=== PATIENT | male | born 1960 | race Caucasian/White ===

== ENCOUNTER 2023-11-10 07:30 | Outpatient (RCR) | payer BC, SELFPAY | END 2024-02-09 11:34 | disposition home or self-care (01) | PROVIDERS: PCP Family Medicine; Visit Provider Family Medicine | DX: M17.0 Bilateral primary osteoarthritis of knee (principal); M25.561 Pain in right knee; M25.562 Pain in left knee; G89.29 Other chronic pain; Z74.09 Other reduced mobility; R29.898 Other symptoms and signs involving the musculoskeletal system; M62.81 Muscle weakness (generalized); Z51.89 Encounter for other specified aftercare | CPT/HCPCS: 97110; 97140; 97162 ==

== ENCOUNTER 2023-12-04 12:43 | Inpatient (IN) | payer BC, MEDICARE, SELFPAY ==
[2023-12-04] VITALS (21 sets, daily range): BP systolic 127–168; BP diastolic 79–99; PULSE 62–92; RESP 16–18; TEMP 36.4–36.9; O2SAT 93–100; BMI 31.4; BMI 32.2
--- NOTE | 2023-12-04 14:13 | CRLHL7_ITS ---
For Patients: As a result of the 21st Century Cures Act, medical imaging exams and procedure reports are released immediately into your electronic medical record. You may view this report before your referring provider. If you have questions, please contact your health care provider. INDICATION: Lower abdominal pain since yesterday COMPARISON: None. TECHNIQUE: CT of the abdomen and pelvis after the administration of intravenous contrast. Multiplanar axial, coronal, and sagittal reformats were reconstructed. Contrast: 100 mL Isovue 370 intravenously. Oral contrast was not administered. FINDINGS: Lung bases: At least moderate coronary artery calcifications. Mild right basilar atelectasis Liver: Normal. No masses. Normal vasculature. Gallbladder and biliary tree: Normal gallbladder. No biliary duct dilation. Pancreas: Normal. Spleen: Calcified granulomas. Normal size. Adrenal glands: Normal. No nodules. Kidneys and bladder: Normal size and position. No cyst or mass. No calculi. No urinary tract dilation. The urinary bladder is normal. GI: The stomach and duodenum have a normal course and caliber and are decompressed. The proximal small bowel has a normal course and caliber and is decompressed. There is slow progression into dilated small bowel. The most dilated small-bowel in the mid to distal ileum in the left mid abdomen and is dilated up to 3.2 cm. Within the dilated bowel there are scattered air-fluid levels. There is fecalization of contents and distally. Within the dilated segment there is no significant abnormal bowel wall thickening or unusual bowel enhancement. There is an abrupt transition in the central lower abdomen on series 2, image 110. Within a dilated segments there is some general mesenteric edema and mesenteric hyperemia. No perforation. No abscess. No fistula seen. Beyond the transition point there is circumferential bowel wall thickening involving about 20 cm of the distal ileum. There is a trilaminar appearance of the bowel wall that is thickened up to 7 mm. Inflammation extends through the terminal ileum to the ileocecal valve. The appendix is not discretely seen. Liquid stool in the right colon. Small distal stool burden. Minimal sigmoid diverticuli. Vessels: Aorta and major branches, including the mesenteric vessels: Patent. Normal caliber. Few atherosclerotic plaques. IVC and tributaries: Normal. Mesenteric and portal veins: Normal. Peritoneum: Small ascites seen in the pelvis, around the liver, and minimally in the left upper quadrant around the spleen. Lymph nodes: No adenopathy. Pelvis: Physiologic appearance of the reproductive organs. Bones: No fractures. No focal bone lesions. Multilevel disc degeneration. Abdominal wall: Normal. IMPRESSION: Small-bowel obstruction. No ischemia or closed loop morphology. The distal transition point is the beginning of a 20 cm segment of the distal and terminal ileum that is fairly significantly inflamed. Findings are suspicious for inflammatory bowel disease but there are not any findings that are specific to inflammatory bowel disease. There is a moderate amount of mesenteric edema and a small amount of free fluid. No perforation, abscess, or definite fistula seen. Please note that all CT scans at this facility use dose modulation, iterative reconstruction, and/or weight-based dosing when appropriate to reduce radiation dose to as low as reasonably achievable. Dictated by Violeta Barr MD @ 12/04/2023 4:35:50 PM (Electronically Signed)
--- OUTSIDE RECORDS SUMMARY | 2023-12-04 14:31 | XMS_ITS | Clinical Summary ---
Author Name Unknown Organization [facility] Address [place], [place] [address] Care Team Providers Care Retail Clerk Name Role Phone VotelOmi MD Primary Care Provider + Allergies No known active allergies Medications Medication Sig Dispensed Refills Start Date End Date Status cholecalciferol (VITAMIN D) 1,000 unit capsule Take 1 capsule by mouth once daily. 0 12/03/2020 Active levothyroxine (SYNTHROID) 100 mcg tabletIndications: Hypothyroidism (acquired) TAKE 1 TABLET(100 MCG) BY MOUTH BEFORE BREAKFAST 90 Tablet 3 03/22/2023 Active diclofenac topical (VOLTAREN) 1 % gelIndications:Sol n in both knees, unspecified chronicity Apply 4 g topically to affected area(s) four times daily. 60 g 2 03/23/2023 Active multivitamin capsule Take 1 Capsule by mouth once daily. 0 Active calcium carbonate (CALCIUM 500 ORAL) Take 1,000 mg by mouth. 0 Active magnesium oxide 400 mg magnesium capsule Take 400 mg by mouth once daily. 0 Active Zinc Acetate, Oral, 25 mg (zinc) cap Take by mouth. 0 Active B-complex with vitamin C (SUPER B COMPLEX-VITAMIN C ORAL) Take by mouth once every other day if needed. 0 Active omega 8-evs-fzh-fish-tur meric 417 mg-120 mg- 276 mg-600 mg cap Take by mouth. 0 Active Graduated Compression StockingsIndicatio ns:Varicose veins of right lower extremity, unspecified whether complicated For personal use. Length: thigh Strength: 16-20 mmHg Circumference in cm: For thigh: Ankle 11 inches, Calf 16.50 inches, Thigh 18.75 inches, Thigh to Ankle length 23.75 inches. 1 Packet 0 07/21/2023 Active Active Problems Problem Noted Date Diagnosed Date Bilateral primary osteoarthritis of knee 023 Varicose veins of right lower extremity 07/21/20 Hypothyroidism, acquired 05/23/2020 Overview: May 2020: TSH over 6. Thyroperoxidase antibodies are also high at 149. Starting Levothyroxine 50mcg. Vitamin D deficiency 2013 Mixed hyperlipidemia 2013 Tobacco abuse 2013 Overweight(278.02) 2013 Colon polyp 09/06/2010 Overview: Colonoscopy 08/2010 polyp repeat in 5 years Colonoscopy 07/2020 polyps, repeat in 5 years Encounters Date Type Department Care Team Description 12/04/2023 Nurse Triage [facility] [address] [place] [address] Omi Lopez MD Abdominal Pain/problem 09/22/2023 10:20 AM CDT Office Visit [facility] [address] [place] [address] Mukund Phillips MD Musculoskeletal Problem (Right knee pain. Rates pain 02/27 today. ) 09/22/2023 Travel from Last 3 Months Immunizations Name Administration Dates Next Due COVID-19 vaccine (Stromedix-Bio NTech 30mcg/0.3mL) MD AMBROCIOV 10/28/2021,04/02/2021,03/12/2021 Influenza, IIV3 (Age >=3 years) 08/24/2010 Influenza, IIV4 12/21/2021,09/18/2020,10/02/2019 Tdap 03/21/2018,12/05/2011 Zoster (Shingrix-RZV, recombinant) 12/03/2020, Family History Medical History Relation Name Comments Cancer Father leukemia Stroke Mother age 86 Heart Disease Neg. 1 Cancer-colon Neg. 2 Cancer-prostate Neg. 3 Diabetes Neg. 4 Relation Name Status Comments Father Mother Neg. 1 Neg. 2 Neg. 3 Neg. 4 Social History Tobacco Use Types Packs/Day Years Used Date Smoking Tobacco: Former Cigarettes 1 35 0 12/21/1984 - 12/21/2019 Smokeless Tobacco: Never Tobacco Cessation:Counseling Given: Yes Alcohol Use Standard Drinks/Week Comments Yes 0 (1 standard drink = 0.6 oz pur e alcohol) 2-3 cans of beer per day PHQ-2 Answer Date Recorded PHQ-2 TOTAL SCORE 1 12/21/2021 Social Connections Answer Date Recorded Frequency of Communication with Friends and Fami ly 0 03/23/2023 Financial Resource Strain Answer Date R ecorded Difficulty of Paying Living Expenses 3 03/23/2023 Difficulty of Paying Living Expenses Not on file 03/23/2023 Food Insecurity Answer Date Recorded Worried About Running Out of Food in the Last Ye ar 1 03/23/2023 Transportation Needs Answer Date Record ed Lack of Transportation (Medical) 1 03/23/2023 Housing Stability Answer Date Recorded Unable to Pay for Housing in the Last Year 1 03/23/2023 Sex and Gender Information Value Date Recorded Sex Assigned at Male 12/20/2021 8:21 PM [employer] Gender Identity Male 12/20/2021 8:21 PM [employer] Sexual Orientation Straight 12/20/2021 8: 21 PM [employer] Obstetrics History Last Filed Vital Signs Vital Sign Reading Time Taken Comments Blood Pressure 114/76 09/22/2023 10:16 AM CDT Pulse 65 09/22/2023 10:16 AM CDT Temperature 36.7 ??C (98.1 ??F) 09/22/2023 10:16 AM C DT Respiratory Rate - - Oxygen Saturation 97% 09/22/2023 10:16 AM CDT Inhaled Oxygen Concentration - - Weight 107.5 kg (237 lb) 09/22/2023 10:16 AM CDT Height 180.3 cm (5' 11) 03/23/2023 4:51 PM CDT Body Mass Index 33.05 03/23/2023 4:51 PM CDT Plan of Treatment Upcoming Encounters Date Type Department Care Team (Late st Contact Info) Description 12/22/2023 9:40 AM [employer] Office Visit [facility] [address] [place] [address] Mukund Phillips MD [address] [place] [address] Health Maintenance Due Date Last Done Comments HIV for age 15-65 1973 Hepatitis C screening for ag e 18-[address] (for lung CA) ag e 50-80 2008 Depression screening for age 12+ 12/21/2022 12/21/2021, 12/03/2020, 07/01/2020, Additional history exists AAA screening age 65-74 2023 Pneumococcal series for age 65+ (1 of 1 - PCV) 2023 COVID-19 vaccine series ( - 2022- season) 2023 10/28/2021, 04/02/2021, 03/12/2021 Influenza for age 65+ 07/21/2023 12/21/2021 , 09/18/2020, 10/02/2019, Additional history exists BMI (ht and wt on same day) for age 18+ 03/23/2024 03/23/2023, 12/21/2021, 12/03/2020, Additional history exists Colonoscopy through age 75 07/24/202507/24, 07/24/2020, 09/06/2010, Additional history exists Tetanus booster 03/21/2028 03/21/2018, 11/20, 12/05/2011 ([facility]) Lipids for age 45-75 03/23/2028 03/23/2023, 12/21/2021, 12/03/2020, Additional history exists Tdap Completed 03/21/2018, 12/05/2011 Zoster (shingles) series for age 50+ Completed 12/03/2020, 07/01/2020 Care Teams Retail Clerk Relationship Specialty Start Date End Date Votel, Omi Acosta MD [address] [place] [address] PCP - General Family Practice 07/01/20
[2023-12-04 14:37] LABS: Appearance Urine Clear (Clear); Bilirubin Urine Negative (Negative); Blood Urine Negative (Negative); Color Urine Yellow (Yellow); Glucose Urine Negative (Negative); Ketones Urine 1+ (Negative); Leukocyte Esterase Urine Negative (Negative); Nitrite Urine Negative (Negative); Protein Urine Trace (Negative); Specific Gravity Urine >= 1.030 (1.000-1.030); Urobilinogen Urine 0.2 (0.2-1.0)
[2023-12-04 14:49] LABS: Basophils Percent Auto 0.1 % (0.0-3.0); Eosinophils Percent Auto 0.1 % (0.0-7.0); Hematocrit 46.7 % (37.0-53.0); Hemoglobin* 16.1 gm/dL (13.5-17.5); Immature Granulocytes Pct Auto 0.1 %; Lymphocytes Percent Auto 5.2 % (20-44); Mean Corpuscular HGB Conc 35 gm/dL (32-36); Mean Corpuscular Hemoglobin 33 pg (26-34); Mean Corpuscular Volume 95 fL (80-100); Monocytes Percent Auto 3.3 % (0.0-11.0); Neutrophils Percent Auto 91.2 % (42.0-72.0); Platelet Count* 268 K/uL (140-440); RDW Coefficient of Variation % 12.3 % (11.5-15.5); Red Blood Count 4.93 m/uL (4.30-5.90); White Blood Count* 13.74 K/uL (4.50-11.00)
[2023-12-04 15:03] LABS: Creatinine, Point-of-Care* 0.8 mg/dl (0.6-1.3)
[2023-12-04 15:13] LABS: Amorphous Sediment Urine Few; Bacteria Urine Few; Calcium Oxalate Crystals Urine Moderate; RBC Urine 0-2 (0-2); Squamous Epithelial Cell Urine Few (None-Few); WBC Urine 0-2 (0-5)
[2023-12-04 15:13] LABS: Slide Review Reflex No
[2023-12-04 15:14] LABS: Albumin* 4.8 g/dL (3.3-5.0); Chloride* 104 mmol/L (96-114); Potassium* 3.9 mmol/L (3.6-5.1); Sodium* 140 mmol/L (135-149)
[2023-12-04 15:16] LABS: Anion Gap 10 mEq/L (7-15); Bilirubin Total* 0.7 mg/dL (0.1-1.5); Carbon Dioxide* 26 mmol/L (20-32); Creatinine* 0.7 mg/dL (0.5-1.5); Est. Creatinine Clearance* 78.44; Estimated Glomerular Filt Rate 102 ml/min
[2023-12-04 15:17] LABS: Alanine Aminotransferase* 23 U/L (4-50); Alkaline Phosphatase* 83 U/L (40-150); Aspartate Amino Transferase* 27 U/L (12-35); Blood Urea Nitrogen* 16 mg/dL (7-30); Calcium* 9.5 mg/dL (8.4-10.6); Glucose* 127 mg/dL (60-115); Lipase* 73 U/L (23-300); Total Protein* 7.8 g/dL (6.0-8.3)
[2023-12-04 15:30] LABS: PCR FLU A Negative PCR FLU A (Negative); PCR FLU B Negative PCR FLU B (Negative); SARS PCR* Negative SARS-CoV-2 (Negative)
--- NOTE | 2023-12-04 15:52 | ED_ITS ---
HPI - Abdominal Pain General Date Seen: 12/04/23 <Lance P Charles - Last Filed: 12/04/23 16:05> Chief Complaint: Abdominal Pain <Lance Soto - Last Filed: 12/04/23 16:05> Stated Complaint: Stomach pains <Lance Soto - Last Filed: 12/04/23 16:05> Time Seen by Provider: 12/04/23 13:48 <Lance Soto - Last Filed: 12/04/23 16:05> Source: patient <Lance Soto - Last Filed: 12/04/23 16:05> Mode of arrival: ambulatory <Lance Soto - Last Filed: 12/04/23 16:05> Limitations: no limitations <Lance Soto - Last Filed: 12/04/23 16:05> History of Present Illness HPI narrative: Patient is a 63-year-old male presenting to the emergency department for lower abdominal pain. he states the pain started yesterday and seems to come and go. He states his only in his lower abdomen but goes all the way across his lower abdomen. Has not noticed any abdominal distension. Denies diarrhea, constipation, dysuria, fevers, chills, chest pain, shortness of breath, lightheadedness, dizziness, nausea /vomiting. Says the pain is tolerable at this time. he has no previous abdominal surgeries. Denies ever having symptoms like this before. Says it feels like a dull sensation. Has not taking any pain medication. He does states he drinks 1 or 2 drinks of alcohol every night for several years after work. States his last drink was this past . No other concerns noted at this time <Lance Soto - Last Filed: 12/04/23 16:05> Related Data Home Medications: Home Medications Medication Instructions Recorded Confirmed levothyroxine 100 mcg tablet 100 mcg PO DAILY 12/04/23 12/04/23 <Lance Soto - Last Filed: 12/04/23 16:05> Allergies/Adverse Reactions: Allergies Allergy/AdvReac Type Severity Reaction Status Date / Time No Known Drug Allergies Allergy Verified 12/04/23 16:02 <Lance Soto - Last Filed: 12/04/23 16:05> Review of Systems Status of ROS Reports: 10 or more systems reviewed and unremarkable except as noted in History and below <Lance Soto DO - Last Filed: 12/04/23 16:05> [facility] Social History: Social History Smoking Status: Never smoker Do you use any of these nicotine containing products: None Second hand tobacco smoke exposure: No How often do you have a drink containing alcohol: 4 or more times a week How many standard drinks containing alcohol do you have on a typical day: 1 or 2 AUDIT-C Alcohol total score: 4 Non-prescribed substance use: denies use <Lance Soto DO - Last Filed: 12/04/23 16:05> Exam Narrative: Exam Narrative: Const: Well-nourished, Well-developed, in mild distress Eyes: PERRL, no conjunctival injection, and symmetrical lids HENT: Atraumatic external nose and ears. Moist mucous membranes. Neck: Symmetric, trachea midline, No thyromegaly. CVS: RRR, No murmurs or gallops. Peripheral pulses 2+ and equal in all extremities RESP: Unlabored respiratory effort. Clear to auscultation bilaterally. GI: lower abdominal tenderness, Nondistended, No rebound or guarding. MSK:Extremities w/o deformity, Normal Active ROM Skin: Warm, Dry. No rashes or lesions. Neuro: Normal Muscle tone, No focal neurological deficits. Psych: Awake, Alert, & Oriented x3. Appropriate mood and affect. <Lance Soto DO - Last Filed: 12/04/23 16:05> Const: Vital Signs, click to edit/add: Vital Signs - 24 hr 12/04/23 13:20 12/04/23 13:45 12/04/23 14:00 Temperature 98.5 F Pulse Rate 74 65 Pulse Rate [Pulse Oximeter] 92 Respiratory Rate 18 Blood Pressure Blood Pressure [Ri ght Upper Arm] 144/89 H Pulse Oximetry 95 96 93 Oxygen Delivery Me thod Room Air 12/04/23 14:29 12/04/23 14:31 12/04/23 14:32 Temperature Pulse Rate 75 70 70 Pulse Rate [Pulse Oximeter] Respiratory Rate Blood Pressure 146/91 H 147/86 H Blood Pressure [Ri ght Upper Arm] Pulse Oximetry 100 100 97 Oxygen Delivery Me thod 12/04/23 15:01 12/04/23 15:31 12/04/23 16:02 Temperature Pulse Rate 69 Pulse Rate [Pulse Oximeter] Respiratory Rate Blood Pressure 150/87 H 155/99 H Blood Pressure [Ri ght Upper Arm] Pulse Oximetry 96 Oxygen Delivery Me thod 12/04/23 16:04 12/04/23 16:05 12/04/23 16:31 Temperature Pulse Rate 75 70 71 Pulse Rate [Pulse Oximeter] Respiratory Rate Blood Pressure 157/84 H 159/98 H Blood Pressure [Ri ght Upper Arm] Pulse Oximetry 95 95 97 Oxygen Delivery Me thod 12/04/23 16:32 12/04/23 17:00 12/04/23 17:01 Temperature Pulse Rate 73 68 70 Pulse Rate [Pulse Oximeter] Respiratory Rate Blood Pressure 168/96 H Blood Pressure [Ri ght Upper Arm] Pulse Oximetry 96 97 98 Oxygen Delivery Me thod <Lance Soto, DO - Last Filed: 12/04/23 16:05> Vital Signs, click to edit/add: Vital Signs - 24 hr 12/04/23 13:20 12/04/23 13:45 12/04/23 14:00 Temperature 98.5 F Pulse Rate 74 65 Pulse Rate [Pulse Oximeter] 92 Respiratory Rate 18 Blood Pressure Blood Pressure [Ri ght Upper Arm] 144/89 H Pulse Oximetry 95 96 93 Oxygen Delivery Me thod Room Air 12/04/23 14:29 12/04/23 14:31 12/04/23 14:32 Temperature Pulse Rate 75 70 70 Pulse Rate [Pulse Oximeter] Respiratory Rate Blood Pressure 146/91 H 147/86 H Blood Pressure [Ri ght Upper Arm] Pulse Oximetry 100 100 97 Oxygen Delivery Me thod 12/04/23 15:01 12/04/23 15:31 12/04/23 16:02 Temperature Pulse Rate 69 Pulse Rate [Pulse Oximeter] Respiratory Rate Blood Pressure 150/87 H 155/99 H Blood Pressure [Ri ght Upper Arm] Pulse Oximetry 96 Oxygen Delivery Me thod 12/04/23 16:04 12/04/23 16:05 12/04/23 16:31 Temperature Pulse Rate 75 70 71 Pulse Rate [Pulse Oximeter] Respiratory Rate Blood Pressure 157/84 H 159/98 H Blood Pressure [Ri ght Upper Arm] Pulse Oximetry 95 95 97 Oxygen Delivery Me thod 12/04/23 16:32 12/04/23 17:00 12/04/23 17:01 Temperature Pulse Rate 73 68 70 Pulse Rate [Pulse Oximeter] Respiratory Rate Blood Pressure 168/96 H Blood Pressure [Ri ght Upper Arm] Pulse Oximetry 96 97 98 Oxygen Delivery Me thod <Lydia Montoya MD - Last Filed: 12/04/23 17:24> Course Course ED Course: I was asked to follow-up in the patient's CT scan: this shows a small bowel obstruction with areas of inflammatory changes. I did consult with Dr. Cid as well as the hospitalist, patient will be admitted for further management. <Lydia Montoya MD - Last Filed: 12/04/23 17:24> Vital Signs Vital signs: Initial Vital Signs Temperature 98.5 F 12/04/23 13:20 Temperature Source Temporal Artery Scan 12/04/23 13:20 Pulse Rate 92 12/04/23 13:20 Respiratory Rate 18 12/04/23 13:20 Blood Pressure 144/89 H 12/04/23 13:20 Blood Pressure Mean 107 H 12/04/23 13:20 Blood Pressure Position Sitting 12/04/23 13:20 Pulse Oximetry 95 12/04/23 13:20 Oxygen Delivery Method Room Air 12/04/23 13:20 Vital Signs Temperature 98.5 F 12/04/23 13:20 Pulse Rate 92 12/04/23 13:20 Respiratory Rate 18 12/04/23 13:20 Blood Pressure 144/89 H 12/04/23 13:20 Pulse Oximetry 95 12/04/23 13:20 Oxygen Delivery Method Room Air 12/04/23 13:20 Temperature 98.5 F 12/04/23 13:20 Pulse Rate 70 12/04/23 17:01 Respiratory Rate 18 12/04/23 13:20 Blood Pressure 168/96 H 12/04/23 17:01 Pulse Oximetry 98 12/04/23 17:01 Oxygen Delivery Method Room Air 12/04/23 13:20 <Lance Soto DO - Last Filed: 12/04/23 16:05> Initial Vital Signs Temperature 98.5 F 12/04/23 13:20 Temperature Source Temporal Artery Scan 12/04/23 13:20 Pulse Rate 92 12/04/23 13:20 Respiratory Rate 18 12/04/23 13:20 Blood Pressure 144/89 H 12/04/23 13:20 Blood Pressure Mean 107 H 12/04/23 13:20 Blood Pressure Position Sitting 12/04/23 13:20 Pulse Oximetry 95 12/04/23 13:20 Oxygen Delivery Method Room Air 12/04/23 13:20 Vital Signs Temperature 98.5 F 12/04/23 13:20 Pulse Rate 92 12/04/23 13:20 Respiratory Rate 18 12/04/23 13:20 Blood Pressure 144/89 H 12/04/23 13:20 Pulse Oximetry 95 12/04/23 13:20 Oxygen Delivery Method Room Air 12/04/23 13:20 Temperature 98.5 F 12/04/23 13:20 Pulse Rate 70 12/04/23 17:01 Respiratory Rate 18 12/04/23 13:20 Blood Pressure 168/96 H 12/04/23 17:01 Pulse Oximetry 98 12/04/23 17:01 Oxygen Delivery Method Room Air 12/04/23 13:20 <Lydia Montoya MD - Last Filed: 12/04/23 17:24> MDM - Abdominal Pain MDM Narrative Medical decision making narrative: patient is a 63-year-old male presenting for lower abdominal pain. There is some concern for liver disease due to his history of alcoholism and will do a CMP to better evaluate this. Does have lower abdominal pain so appendicitis and diverticulitis are on the differential. Seems unlikely to be a small-bowel obstruction with no history of abdominal surgeries but it is in my differential at this time. Is not having any urinary symptoms will order urinalysis. Also order CBC, COVID/flu/ RSV. CBC shows white count of 13.7 for last mostly neutrophils. This is concerning for bacterial infection at this time. Lipase normal and pancreatitis unlikely. LFTs within normal limits since not appear to be liver disease. Urinalysis shows no concerning abnormalities unlikely to be UTI. COVID/flu negative. Patient is not requesting any pain or nausea medicine at this time. He is currently pending is CT scan of be signed out to my colleague Dr. Montoya <Lance Soto DO - Last Filed: 12/04/23 16:05> Lab Data Labs: Lab Results 12/04/23 12/04/23 Range/Units 14:20 14:37 WBC 13.74 H (4.50-11.00) K/uL RBC 4.93 (4.30-5.90) m/uL Hgb 16.1 (13.5-17.5) gm/dL Hct 46.7 (37.0-53.0) % MCV 95 (80-100) fL MCH 33 (26-34) pg MCHC 35 (32-36) gm/dL RDW Coeff of Andrea 12.3 (11.5-15.5) % Plt Count 268 (140-440) K/uL Neut % (Auto) 91.2 H (42.0-72.0) % Lymph % (Auto) 5.2 L (20-44) % [place] % (Auto) 3.3 (0.0-11.0) % Eos % (Auto) 0.1 (0.0-7.0) % Baso % (Auto) 0.1 (0.0-3.0) % Neut # (Auto) 12.50 H (1.7-7.0) K/uL Lymph # (Auto) 0.70 L (0.90-2.90) K/uL [place] # (Auto) 0.50 (0.00-0.90) K/UL Eos # (Auto) 0.00 (0.00-0.50) K/uL Baso # (Auto) 0.00 (0.00-0.30) K/uL Abs Immat Gran (auto) 0.00 (0.00-0.30) K/uL Imm/Tot Granulo (auto) 0.1 % Sodium 140 (135-149) mmol/L Potassium 3.9 (3.6-5.1) mmol/L Chloride 104 (96-114) mmol/L Carbon Dioxide 26 (20-32) mmol/L Anion Gap 10 (7-15) mEq/L BUN 16 (7-30) mg/dL Creatinine 0.7 (0.5-1.5) mg/dL Estimated Creat Clear 78.44 Estimated GFR 102 ml/min Glucose 127 H (60-115) mg/dL Calcium 9.5 (8.4-10.6) mg/dL Total Bilirubin 0.7 (0.1-1.5) mg/dL AST 27 (12-35) U/L ALT 23 (4-50) U/L Alkaline Phosphatase 83 (40-150) U/L Total Protein 7.8 (6.0-8.3) g/dL Albumin 4.8 (3.3-5.0) g/dL Lipase 73 (23-300) U/L Urine Color Yellow (Yellow) Urine Appearance Clear (Clear) Urine pH 6.0 (5.0-8.5) Ur Specific [place] >= 1.030 (1.000-1.030) Urine Protein Trace A (Negative) Urine Glucose (UA) Negative (Negative) Urine Ketones 1+ A (Negative) Urine Blood Negative (Negative) Urine Nitrite Negative (Negative) Urine Bilirubin Negative (Negative) Urine Urobilinogen 0.2 (0.2-1.0) Ur Leukocyte Esterase Negative (Negative) Urine RBC 0-2 (0-2) Urine WBC 0-2 (0-5) Ur Squamous Epith Cells Few (None-Few) Calcium Oxalate Crystal Moderate A (None) Amorphous Sediment Few A (None) Urine Bacteria Few A (None) SARS-CoV-2 (PCR) Negative SARS-CoV-2 (Negative) Influenza Type A (PCR) Negative PCR FLU A (Negative) Influenza Type B (PCR) Negative PCR FLU B (Negative) POC Creatinine 0.8 (0.6-1.3) mg/dl <Lance Soto, DO - Last Filed: 12/04/23 16:05> Lab Results 12/04/23 12/04/23 Range/Units 14:20 14:37 WBC 13.74 H (4.50-11.00) K/uL RBC 4.93 (4.30-5.90) m/uL Hgb 16.1 (13.5-17.5) gm/dL Hct 46.7 (37.0-53.0) % MCV 95 (80-100) fL MCH 33 (26-34) pg MCHC 35 (32-36) gm/dL RDW Coeff of Andrea 12.3 (11.5-15.5) % Plt Count 268 (140-440) K/uL Neut % (Auto) 91.2 H (42.0-72.0) % Lymph % (Auto) 5.2 L (20-44) % [place] % (Auto) 3.3 (0.0-11.0) % Eos % (Auto) 0.1 (0.0-7.0) % Baso % (Auto) 0.1 (0.0-3.0) % Neut # (Auto) 12.50 H (1.7-7.0) K/uL Lymph # (Auto) 0.70 L (0.90-2.90) K/uL [place] # (Auto) 0.50 (0.00-0.90) K/UL Eos # (Auto) 0.00 (0.00-0.50) K/uL Baso # (Auto) 0.00 (0.00-0.30) K/uL Abs Immat Gran (auto) 0.00 (0.00-0.30) K/uL Imm/Tot Granulo (auto) 0.1 % Sodium 140 (135-149) mmol/L Potassium 3.9 (3.6-5.1) mmol/L Chloride 104 (96-114) mmol/L Carbon Dioxide 26 (20-32) mmol/L Anion Gap 10 (7-15) mEq/L BUN 16 (7-30) mg/dL Creatinine 0.7 (0.5-1.5) mg/dL Estimated Creat Clear 78.44 Estimated GFR 102 ml/min Glucose 127 H (60-115) mg/dL Calcium 9.5 (8.4-10.6) mg/dL Total Bilirubin 0.7 (0.1-1.5) mg/dL AST 27 (12-35) U/L ALT 23 (4-50) U/L Alkaline Phosphatase 83 (40-150) U/L Total Protein 7.8 (6.0-8.3) g/dL Albumin 4.8 (3.3-5.0) g/dL Lipase 73 (23-300) U/L Urine Color Yellow (Yellow) Urine Appearance Clear (Clear) Urine pH 6.0 (5.0-8.5) Ur Specific [place] >= 1.030 (1.000-1.030) Urine Protein Trace A (Negative) Urine Glucose (UA) Negative (Negative) Urine Ketones 1+ A (Negative) Urine Blood Negative (Negative) Urine Nitrite Negative (Negative) Urine Bilirubin Negative (Negative) Urine Urobilinogen 0.2 (0.2-1.0) Ur Leukocyte Esterase Negative (Negative) Urine RBC 0-2 (0-2) Urine WBC 0-2 (0-5) Ur Squamous Epith Cells Few (None-Few) Calcium Oxalate Crystal Moderate A (None) Amorphous Sediment Few A (None) Urine Bacteria Few A (None) SARS-CoV-2 (PCR) Negative SARS-CoV-2 (Negative) Influenza Type A (PCR) Negative PCR FLU A (Negative) Influenza Type B (PCR) Negative PCR FLU B (Negative) POC Creatinine 0.8 (0.6-1.3) mg/dl <Lydia Montoya MD - Last Filed: 12/04/23 17:24> Discharge Plan Discharge Clinical Impression: Small bowel obstruction <Lance Soto DO - Last Filed: 12/04/23 16:05> Patient Disposition: Admitted As Observation <Lance Soto DO - Last Filed: 12/04/23 16:05> Condition: Stable <Lance Soto DO - Last Filed: 12/04/23 16:05> Prescriptions: No Action levothyroxine 100 mcg tablet 100 mcg PO DAILY <Lance Soto DO - Last Filed: 12/04/23 16:05> Follow Up/Referrals: Mukund Phillips MD [Primary Care Provider] - <Lance Soto DO - Last Filed: 12/04/23 16:05>
--- NOTE | 2023-12-04 17:38 | PM.IMHP1 ---
Hospitalist- H&P: HPI History of Present Illness Date Seen: 12/04/23 Chief complaint: Stomach pains Narrative: Casper Vergara is a 63 year old male past medical history significant for hypothyroidism, remote history of colon surgery is admitted to the medical floor from the ED for further management small-bowel obstruction, questionable inflammatory bowel disease. Patient reports 2 day history of abdominal pain, onset Monday afternoon. Reports feeling bloated with waves of dull pain throughout the abdomen. Had a large emesis this morning and promptly felt better. Fell back asleep however awoke 2 hours later with same pain again. Has been belching. Has not passed gas since yesterday. Last normal bowel movement was Monday. Had a small hard BM this morning. No diarrhea. Denies headache or dizziness. Denies recent fevers. Did have the sweats overnight last night when he was not feeling well. Denies chest pain or shortness of breath. No change in urination. Nonsmoker. Drinks 2 [place] daily. Last intake was . No history of withdrawals or seizures. Only prescribed medication is levothyroxine, otherwise takes a handful of supplements/vitamins. No recent medication changes. No recent diet changes. Review of Systems Narrative: REVIEW OF SYSTEMS: Complete review of systems performed and negative unless otherwise stated in HPI or below. [facility] Medical History Osteoarthritis ?M19.90 - Unspecified osteoarthritis, unspecified site (ICD-10) Hypothyroidism ?E03.9 - Hypothyroidism, unspecified (ICD-10) Hyperlipidemia ?E78.5 - Hyperlipidemia, unspecified (ICD-10) Social History Smoking Status: Never smoker Do you use any of these nicotine containing products: None Second hand tobacco smoke exposure: No How often do you have a drink containing alcohol: 4 or more times a week How many standard drinks containing alcohol do you have on a typical day: 1 or 2 AUDIT-C Alcohol total score: 4 Non-prescribed substance use: denies use Meds Home Medications and Allergies Home Medications Medication Instructions Recorded Confirmed Type levothyroxine 100 mcg tablet 100 mcg PO DAILY 12/04/23 12/04/23 History Allergies Allergy/AdvReac Type Severity Reaction Status Date / Time No Known Drug Allergies Allergy Verified 12/04/23 16:02 Exam Narrative: Exam Narrative: PHYSICAL EXAM General: Pleasant, conversant, NAD HEENT: Normocephalic, atraumatic, sclera white, EOMI, oral mucosa moist Cardiovascular: RRR, S1S2. No pitting edema Pulmonary: CTA bilaterally without rhonchi, rales, expiratory wheezes. No dyspnea Abdominal: Distended, firm, sensitive to touch Neurological: Alert, answering questions appropriately, cranial nerves intact, no focal findings Extremities: No gross joint deformity or swelling. AROMI. Neurovascularly intact Skin: Warm, dry. Const: Vital Signs, click to edit/add: Vital Signs - 24 hr 12/04/23 13:20 12/04/23 13:45 12/04/23 14:00 Temperature 98.5 F Pulse Rate 74 65 Pulse Rate [Pulse Oximeter] 92 Respiratory Rate 18 Blood Pressure Blood Pressure [Ri ght Upper Arm] 144/89 H Pulse Oximetry 95 96 93 [facility] 12/04/23 14:29 12/04/23 14:31 12/04/23 14:32 Temperature Pulse Rate 75 70 70 Pulse Rate [Pulse Oximeter] Respiratory Rate Blood Pressure 146/91 H 147/86 H Blood Pressure [Ri ght Upper Arm] Pulse Oximetry 100 100 97 [facility] 12/04/23 15:01 12/04/23 15:31 12/04/23 16:02 Temperature Pulse Rate 69 Pulse Rate [Pulse Oximeter] Respiratory Rate Blood Pressure 150/87 H 155/99 H Blood Pressure [Ri ght Upper Arm] Pulse Oximetry 96 [facility] 12/04/23 16:04 12/04/23 16:05 12/04/23 16:31 Temperature Pulse Rate 75 70 71 Pulse Rate [Pulse Oximeter] Respiratory Rate Blood Pressure 157/84 H 159/98 H Blood Pressure [Ri ght Upper Arm] Pulse Oximetry 95 95 97 [facility] 12/04/23 16:32 12/04/23 17:00 12/04/23 17:01 Temperature Pulse Rate 73 68 70 Pulse Rate [Pulse Oximeter] Respiratory Rate Blood Pressure 168/96 H Blood Pressure [Ri ght Upper Arm] Pulse Oximetry 96 97 98 [facility] - H&P: Result Labs Labs: Short CBC 12/04/23 Range/Units 14:37 WBC 13.74 H (4.50-11.00) K/uL Hgb 16.1 (13.5-17.5) gm/dL Hct 46.7 (37.0-53.0) % Plt Count 268 (140-440) K/uL BMP 12/04/23 14:37 Sodium 140 Potassium 3.9 Chloride 104 Carbon Dioxide 26 BUN 16 Creatinine 0.7 Glucose 127 H Calcium 9.5 Liver Function 12/04/23 Range/Units 14:37 Total Bilirubin 0.7 (0.1-1.5) mg/dL AST 27 (12-35) U/L ALT 23 (4-50) U/L Alkaline Phosphatase 83 (40-150) U/L Albumin 4.8 (3.3-5.0) g/dL Urine 12/04/23 Range/Units 14:20 Urine Color Yellow (Yellow) Urine Appearance Clear (Clear) Urine pH 6.0 (5.0-8.5) Ur Specific [place] >= 1.030 (1.000-1.030) Urine Protein Trace A (Negative) Urine Glucose (UA) Negative (Negative) Imaging CT scan - abdomen: Attestation: I have reviewed the pertinent imaging results. Radiologist's impression: CT of the abdomen and pelvis after the administration of intravenous contrast. Multiplanar axial, coronal, and sagittal reformats were reconstructed. Contrast: 100 mL Isovue 370 intravenously. Oral contrast was not administered. FINDINGS: Lung bases: At least moderate coronary artery calcifications. Mild right basilar atelectasis Liver: Normal. No masses. Normal vasculature. Gallbladder and biliary tree: Normal gallbladder. No biliary duct dilation. Pancreas: Normal. Spleen: Calcified granulomas. Normal size. Adrenal glands: Normal. No nodules. Kidneys and bladder: Normal size and position. No cyst or mass. No calculi. No urinary tract dilation. The urinary bladder is normal. GI: The stomach and duodenum have a normal course and caliber and are decompressed. The proximal small bowel has a normal course and caliber and is decompressed. There is slow progression into dilated small bowel. The most dilated small-bowel in the mid to distal ileum in the left mid abdomen and is dilated up to 3.2 cm. Within the dilated bowel there are scattered air-fluid levels. There is fecalization of contents and distally. Within the dilated segment there is no significant abnormal bowel wall thickening or unusual bowel enhancement. There is an abrupt transition in the central lower abdomen on series 2, image 110. Within a dilated segments there is some general mesenteric edema and mesenteric hyperemia. No perforation. No abscess. No fistula seen. Beyond the transition point there is circumferential bowel wall thickening involving about 20 cm of the distal ileum. There is a trilaminar appearance of the bowel wall that is thickened up to 7 mm. Inflammation extends through the terminal ileum to the ileocecal valve. The appendix is not discretely seen. Liquid stool in the right colon. Small distal stool burden. Minimal sigmoid diverticuli. Vessels: Aorta and major branches, including the mesenteric vessels: Patent. Normal caliber. Few atherosclerotic plaques. IVC and tributaries: Normal. Mesenteric and portal veins: Normal. Peritoneum: Small ascites seen in the pelvis, around the liver, and minimally in the left upper quadrant around the spleen. Lymph nodes: No adenopathy. Pelvis: Physiologic appearance of the reproductive organs. Bones: No fractures. No focal bone lesions. Multilevel disc degeneration. Abdominal wall: Normal. IMPRESSION: Small-bowel obstruction. No ischemia or closed loop morphology. The distal transition point is the beginning of a 20 cm segment of the distal and terminal ileum that is fairly significantly inflamed. Findings are suspicious for inflammatory bowel disease but there are not any findings that are specific to inflammatory bowel disease. There is a moderate amount of mesenteric edema and a small amount of free fluid. No perforation, abscess, or definite fistula seen. Assessment and Plan Assessment and plan (1) Small bowel obstruction: Problem comment: -remote history of colon surgery, polyp removal, 20+ years ago -CT shows small bowel obstruction, suspicious findings for inflammatory bowel disease. Mild leukocytosis, LFTs unremarkable, afebrile. -vomit x1 this morning prior to arrival in ED, last BM 12/02, not passing gas, + belching -bowel rest, IVF 100 mL/hr, minimal ice chips, IV Protonix -pain and nausea management as needed -encourage ambulation -will need NGT if vomiting returns -discussed with Dr. Cid Status: Acute (2) Hypothyroidism: Problem comment: -continue levothyroxine Status: Chronic Plan CODE: Full VTE PPX: Enoxaparin Disposition: Observation
[2023-12-04] MEDS: 0.9 % SODIUM CHLORIDE 1000 ml 1,000 ML 100 ML IV (18:04)
[2023-12-04] MEDS: MORPHINE 4 MG/ML INJ IVP (18:05)
[2023-12-04 18:36] LABS: C Reactive Protein* 0.6 mg/dL (0.5-1.0)
--- NOTE | 2023-12-04 19:24 | PC.NURSE ---
patient arrived to floor around around 1730, rating pain in abdomen 6-7/10, prn morphine given with relief, alert and oriented, up ind in room and walking hallways, patient encouraged to walk as much as tolerated, in room and very supportive.
[2023-12-04] MEDS: PANTOPRAZOLE SODIUM 40 MG INJ IVP (20:24)
[2023-12-04] MEDS: ENOXAPARIN 40 MG/0.4 ML INJ SUBCUT (20:24)
[2023-12-05] VITALS (7 sets, daily range): BP systolic 105–139; BP diastolic 68–85; PULSE 63–94; RESP 16–20; TEMP 36.6–37.1; O2SAT 94–97
[2023-12-05] MEDS: 0.9 % SODIUM CHLORIDE 1000 ml 1,000 ML 100 ML IV ×2 (03:40→13:15)
[2023-12-05 06:29] LABS: Hemoglobin* 14.6 gm/dL (13.5-17.5); Mean Corpuscular HGB Conc 34 gm/dL (32-36); Mean Corpuscular Hemoglobin 33 pg (26-34); Mean Corpuscular Volume 97 fL (80-100); Platelet Count* 257 K/uL (140-440); Red Blood Count 4.44 m/uL (4.30-5.90); Slide Review Reflex No; White Blood Count* 10.93 K/uL (4.50-11.00)
[2023-12-05 06:37] LABS: Chloride* 109 mmol/L (96-114); Sodium* 139 mmol/L (135-149)
[2023-12-05 06:40] LABS: Anion Gap 8 mEq/L (7-15); Blood Urea Nitrogen* 20 mg/dL (7-30); Carbon Dioxide* 22 mmol/L (20-32); Creatinine* 0.8 mg/dL (0.5-1.5); Est. Creatinine Clearance* 80.83; Estimated Glomerular Filt Rate 98 ml/min
[2023-12-05 06:41] LABS: Calcium* 8.7 mg/dL (8.4-10.6); Glucose* 125 mg/dL (60-115)
--- NOTE | 2023-12-05 07:03 | PC.NURSE ---
19-07: pleasant and cooperative. rated abd pain 3/10, denied need for pain medication. bowel tones active. denies passing gas.
[2023-12-05] MEDS: MORPHINE 4 MG/ML INJ IVP ×3 (07:46→17:24)
--- NOTE | 2023-12-05 08:18 | P.GSCN_ITS ---
History of Present Illness Consult details Date Seen: 12/05/23 Consult date: 12/05/23 Narrative: The patient is a 63-year-old male who presented to the ER yesterday with abdominal pain for the prior day. He states that he developed the abrupt onset of diffuse abdominal pain which was crampy in nature 2 days ago. He states that he tried to sleep it off but this did not help. He woke up yesterday morning and vomited. He then felt better. However, the pain returned. Again he states that this is crampy pain which comes and goes. He had a normal bowel movement 3 days ago. He has not been passing gas. He is thirsty. He has never had anything like this previously. He has a history of a transanal polypectomy versus hemorrhoidectomy 25 years ago. He has undergone regular 5 year colonoscopies for history of polyps. His last colonoscopy was 5 years ago. Denies a history of diarrhea or abdominal pain. No history of Crohn's disease that he knows of. No history of bowel obstruction. No prior abdominal surgeries. [facility] Medical History (Updated 12/05/23 @ 12:17 by Ann Humphreys MD) Vitamin D deficiency (06/14/13) ?E55.9 - Vitamin D deficiency, unspecified (ICD-10) Varicose veins of right lower extremity (07/21/23) ?I83.91 - Asymptomatic varicose veins of right lower extremity (ICD-10) Mixed hyperlipidemia (06/14/13) ?E78.2 - Mixed hyperlipidemia (ICD-10) Colon polyp (09/06/10) ?K63.5 - Polyp of colon (ICD-10) Osteoarthritis ?M19.90 - Unspecified osteoarthritis, unspecified site (ICD-10) Hypothyroidism ?E03.9 - Hypothyroidism, unspecified (ICD-10) Hyperlipidemia ?E78.5 - Hyperlipidemia, unspecified (ICD-10) Surgical History (Updated 12/05/23 @ 09:02 by Ashley Cid MD) History of colon surgery ?Z98.890 - Other specified postprocedural states (ICD-10) Social History (Updated 12/05/23 @ 09:03 by Ashley Cid MD) Narrative: He works as a [employer] man. He does not smoke. He drinks 2 alcoholic drinks a day. What is your current living situation?: I presently have a place to live Problems where you live: no known problems Problems where you live details: na In the past 12 months, utilities in danger of being shut off: no In past 12 months, lack of transportation kept you from medical appts, meetings, work, or getting things needed for daily living: no In the past 12 mos, have been you worried that your food would run out before you had money to buy more?: never true In the past 12 mos, the food you bought just didn't last and you didn't have money to buy more?: never true Highest level of school completed/degree received: high school graduate Smoking Status: Never smoker Do you use any of these nicotine containing products: None Second hand tobacco smoke exposure: No How often do you have a drink containing alcohol: 4 or more times a week Alcoho l type: beer How many standard drinks containing alcohol do you have on a typical day: 1 or 2 How often do you have six or more drinks on one occasion: Never AUDIT-C Alcohol total score: 4 Non-prescribed substance use: denies use How often does anyone, including family, friends and others, physically hurt you : never How often does anyone, including family, friends and others, insult or talk down to you: never How often does anyone, including family, friends and others, threaten you with harm: never How often does anyone, including family, friends and others, scream or curse at you: never Meds Home Medications and Allergies Home Medications Medication Instructions Recorded Confirmed Type levothyroxine 100 mcg tablet 100 mcg PO DAILY 12/04/23 12/04/23 History calcium carbonate 215 mg calcium 430 mg PO DAILY 12/05/23 12/05/23 History (500 mg) chewable tablet (Antacid Calcium) cholecalciferol (vitamin D3) 25 25 mcg PO DAILY 12/05/23 12/05/23 History mcg (1,000 unit) capsule magnesium oxide 400 mg PO DAILY 12/05/23 12/05/23 History multivitamin 1 tab PO DAILY 12/05/23 12/05/23 History omega-3 fatty acids 1,000 mg 1,000 mg PO DAILY 12/05/23 12/05/23 History capsule vitamin B comp and C no.3 15 mg-10 1 cap PO Q48H PRN 12/05/23 12/05/23 History mg-50 mg-5 mg-300 mg capsule (B Complex Plus Vitamin C) zinc acetate 25 mg (zinc) capsule 25 mg PO DAILY 12/05/23 12/05/23 History Allergies Allergy/AdvReac Type Severity Reaction Status Date / Time No Known Drug Allergies Allergy Verified 12/04/23 16:02 Exam Narrative: Exam Narrative: General appearance: Alert, cooperative, and in no distress Eyes: PERRLA, eye lids clear, and sclera white HENT Head: Normocephalic Ears: External ears normal Pulmonary: Breathing nonlabored on room air Cardiovascular Heart: Regular rate Extremities: warm and well perfused - varicosities noted prominently on the right lower extremity. Gastrointestinal Abdominal: No scars noted on his abdomen. Abdomen does not appear to be significantly distended. This is soft. Nontender to palpation. No guarding or rebound. Musculoskeletal: Extremities: Upper: Both upper extremities have normal joint range of motion and intact strength. Lower: Both lower extremities have normal joint range of motion and intact strength. Skin: Normal skin color, texture, and turgor. Neurologic: No focal deficits Psychiatric: Alert, oriented, cooperative, normal affect. Const: Vital Signs, click to edit/add: Vital Signs - 24 hr 12/04/23 13:20 12/04/23 13:45 12/04/23 14:00 Temperature 98.5 F Pulse Rate 74 65 Pulse Rate [Pulse Oximeter] 92 Respiratory Rate 18 Blood Pressure Blood Pressure [Ri ght Arm] Blood Pressure [Ri ght Upper Arm] 144/89 H Pulse Oximetry 95 96 93 [facility] 12/04/23 14:29 12/04/23 14:31 12/04/23 14:32 Temperature Pulse Rate 75 70 70 Pulse Rate [Pulse Oximeter] Respiratory Rate Blood Pressure 146/91 H 147/86 H Blood Pressure [Ri ght Arm] Blood Pressure [Ri ght Upper Arm] Pulse Oximetry 100 100 97 [facility] 12/04/23 15:01 12/04/23 15:31 12/04/23 16:02 Temperature Pulse Rate 69 Pulse Rate [Pulse Oximeter] Respiratory Rate Blood Pressure 150/87 H 155/99 H Blood Pressure [Ri ght Arm] Blood Pressure [Ri ght Upper Arm] Pulse Oximetry 96 [facility] 12/04/23 16:04 12/04/23 16:05 12/04/23 16:31 Temperature Pulse Rate 75 70 71 Pulse Rate [Pulse Oximeter] Respiratory Rate Blood Pressure 157/84 H 159/98 H Blood Pressure [Ri ght Arm] Blood Pressure [Ri ght Upper Arm] Pulse Oximetry 95 95 97 Oxygen Delivery [facility] 12/04/23 16:32 12/04/23 17:00 12/04/23 17:01 Temperature Pulse Rate 73 68 70 Pulse Rate [Pulse Oximeter] Respiratory Rate Blood Pressure 168/96 H Blood Pressure [Ri ght Arm] Blood Pressure [Ri ght Upper Arm] Pulse Oximetry 96 97 98 Oxygen Delivery [facility] 12/04/23 17:02 12/04/23 17:31 12/04/23 17:48 Temperature 97.6 F Pulse Rate 70 Pulse Rate [Pulse Oximeter] 77 Respiratory Rate 18 Blood Pressure 127/81 Blood Pressure [Ri ght Arm] 157/89 H Blood Pressure [Ri ght Upper Arm] Pulse Oximetry 98 96 Oxygen Delivery [facility] Room Air 12/04/23 19:00 12/04/23 19:00 12/04/23 22:27 Temperature 98.1 F Pulse Rate Pulse Rate [Pulse Oximeter] 62 Respiratory Rate 18 18 18 Blood Pressure Blood Pressure [Ri ght Arm] 135/79 Blood Pressure [Ri ght Upper Arm] Pulse Oximetry 96 96 96 Oxygen Delivery [facility] Room Air Room Air Room Air 12/04/23 23:00 12/04/23 23:00 12/05/23 03:00 Temperature 97.8 F Pulse Rate Pulse Rate [Pulse Oximeter] 70 71 Respiratory Rate 16 16 16 Blood Pressure Blood Pressure [Ri ght Arm] 133/87 139/85 Blood Pressure [Ri ght Upper Arm] Pulse Oximetry 95 96 Oxygen Delivery [facility] Room Air Room Air 12/05/23 07:30 12/05/23 07:30 12/05/23 08:17 Temperature 98.6 F Pulse Rate Pulse Rate [Pulse Oximeter] 63 63 Respiratory Rate 18 18 Blood Pressure Blood Pressure [Ri ght Arm] 123/76 Blood Pressure [Ri ght Upper Arm] Pulse Oximetry 94 94 Oxygen Delivery [facility] Room Air Room Air Results Labs Labs: Abnormal lab results 12/04/23 12/04/23 12/05/23 Range/Units 14:20 14:37 05:51 WBC 13.74 H (4.50-11.00) K/uL Neut % (Auto) 91.2 H (42.0-72.0) % Lymph % (Auto) 5.2 L (20-44) % Neut # (Auto) 12.50 H (1.7-7.0) K/uL Lymph # (Auto) 0.70 L (0.90-2.90) K/uL Glucose 127 H 125 H (60-115) mg/dL Urine Protein Trace A (Negative) Urine Ketones 1+ A (Negative) Calcium Oxalate Crystal Moderate A (None) Amorphous Sediment Few A (None) Urine Bacteria Few A (None) Diabetes panel 12/04/23 12/05/23 Range/Units 14:37 05:51 Sodium 140 139 (135-149) mmol/L Potassium 3.9 4.0 (3.6-5.1) mmol/L Chloride 104 109 (96-114) mmol/L Carbon Dioxide 26 22 (20-32) mmol/L BUN 16 20 (7-30) mg/dL Creatinine 0.7 0.8 (0.5-1.5) mg/dL Glucose 127 H 125 H (60-115) mg/dL Calcium 9.5 8.7 (8.4-10.6) mg/dL AST 27 (12-35) U/L ALT 23 (4-50) U/L Alkaline Phosphatase 83 (40-150) U/L Total Protein 7.8 (6.0-8.3) g/dL Albumin 4.8 (3.3-5.0) g/dL Calcium panel 12/04/23 12/05/23 Range/Units 14:37 05:51 Calcium 9.5 8.7 (8.4-10.6) mg/dL Albumin 4.8 (3.3-5.0) g/dL Pituitary panel 12/04/23 12/05/23 Range/Units 14:37 05:51 Sodium 140 139 (135-149) mmol/L Potassium 3.9 4.0 (3.6-5.1) mmol/L Chloride 104 109 (96-114) mmol/L Carbon Dioxide 26 22 (20-32) mmol/L BUN 16 20 (7-30) mg/dL Creatinine 0.7 0.8 (0.5-1.5) mg/dL Glucose 127 H 125 H (60-115) mg/dL Calcium 9.5 8.7 (8.4-10.6) mg/dL Adrenal panel 12/04/23 12/05/23 Range/Units 14:37 05:51 Sodium 140 139 (135-149) mmol/L Potassium 3.9 4.0 (3.6-5.1) mmol/L Chloride 104 109 (96-114) mmol/L Carbon Dioxide 26 22 (20-32) mmol/L BUN 16 20 (7-30) mg/dL Creatinine 0.7 0.8 (0.5-1.5) mg/dL Glucose 127 H 125 H (60-115) mg/dL Calcium 9.5 8.7 (8.4-10.6) mg/dL Total Bilirubin 0.7 (0.1-1.5) mg/dL AST 27 (12-35) U/L ALT 23 (4-50) U/L Alkaline Phosphatase 83 (40-150) U/L Total Protein 7.8 (6.0-8.3) g/dL Albumin 4.8 (3.3-5.0) g/dL All other labs normal. Imaging Abdomen CT scan report/results: report reviewed and image reviewed Additional studies: CT Abdomen 12/04/23: Small-bowel obstruction. No ischemia or closed loop morphology. The distal transition point is the beginning of a 20 cm segment of the distal and terminal ileum that is fairly significantly inflamed. Findings are suspicious for inflammatory bowel disease but there are not any findings that are specific to inflammatory bowel disease. There is a moderate amount of mesenteric edema and a small amount of free fluid. No perforation, abscess, or definite fistula seen. Please note that all CT scans at this facility use dose modulation, iterative reconstruction, and/or weight-based dosing when appropriate to reduce radiation dose to as low as reasonably achievable. Dictated by Violeta Barr MD @ 12/04/2023 4:35:50 PM Assessment and Plan Assessment and plan (1) Small bowel obstruction: Problem comment: -remote history of colon surgery, polyp removal, 20+ years ago -CT shows small bowel obstruction, suspicious findings for inflammatory bowel disease. Mild leukocytosis now resolved, LFTs unremarkable, afebrile. -vomit x1 prior to arrival in ED, last BM 12/02, not passing gas, + belching -bowel rest, IVF 100 mL/hr, minimal ice chips, IV Protonix -pain and nausea management as needed -encourage ambulation -will need NGT if vomiting returns -Appreciate general surgery following for potential surgical needs Status: Acute Plan The patient is a 63-year-old male who appears to have a small-bowel obstruction with an abrupt transition point at the area of thickening of his distal ileum. This seems radiographically consistent with inflammatory bowel disease, however the patient does not have any prior history of this. I discussed the findings with radiology - ischemic enteritis would be very unlikely as well as infectious. I discused with the patient and his significant other bowel obstruction and the management. I recommended NPO status and await for return of bowel function unless his condition deteriorates. In the meantime, I am going to recommend a gastrograffin challenge which can be diagnostic as well as therapeutic for him. If he improves clinically then I would recommend outpatie nt colonoscopy with terminal ileoscopy. If he does not improve over the next few days, then he will likely need surgery. I explained to the patient and his that this will likely result in a pa rtial bowel resection. We briefly discussed the risks of this today. He understands that if his pain becomes more severe, he develops fever tachycardia then we would need to proceed to the OR sooner.
[2023-12-05] MEDS: PANTOPRAZOLE SODIUM 40 MG INJ IVP (09:04)
--- NOTE | 2023-12-05 12:11 | P.IMPN_ITS ---
Progress Note: A&P Assessment and plan (1) Small bowel obstruction: Problem details: -remote history of colon surgery, polyp removal, 20+ years ago -CT shows small bowel obstruction, suspicious findings for inflammatory bowel disease. Mild leukocytosis now resolved, LFTs unremarkable, afebrile. -vomit x1 prior to arrival in ED, last BM 12/02, not passing gas, + belching -bowel rest, IVF 100 mL/hr, minimal ice chips, IV Protonix -pain and nausea management as needed -encourage ambulation -will need NGT if vomiting returns -Appreciate general surgery following for potential surgical needs Status: Acute (2) Hypothyroidism: Problem details: -continue levothyroxine Status: Chronic (3) Hyperlipidemia: Problem details: -listed in medical history, not currently on medication Status: Chronic Subjective Date Seen: 12/05/23 Interval history: Patient is seen and examined. Continues with abdominal discomfort and belching, but denies significant nausea. He has not vomited since yesterday. Not passing gas or stool. Has been seen by surgeon, looking into potential barium study. Patient has no new concerns. No significant abdominal surgeries and no history of IBD. No recent travel. Exam: General- uncomfortable appearing, but no distress HEENT: NCAT Resp: Unlabored, CTAB CV: RRR Abd: Mildly distended, but soft. Tender throughout. Bowel sounds hypoactive and only heard in RUQ, no peritoneal signs Neuro: Nonfocal, no lateralizing deficits Skin: warm and dry Exam Const: Vital Signs, click to edit/add: Vital Signs - 24 hr 12/04/23 13:20 12/04/23 13:45 12/04/23 14:00 Temperature 98.5 F Pulse Rate 74 65 Pulse Rate [Pulse Oximeter] 92 Respiratory Rate 18 Blood Pressure Blood Pressure [Ri ght Arm] Blood Pressure [Ri ght Upper Arm] 144/89 H Pulse Oximetry 95 96 93 Oxygen Delivery Me thod Room Air 12/04/23 14:29 12/04/23 14:31 12/04/23 14:32 Temperature Pulse Rate 75 70 70 Pulse Rate [Pulse Oximeter] Respiratory Rate Blood Pressure 146/91 H 147/86 H Blood Pressure [Ri ght Arm] Blood Pressure [Ri ght Upper Arm] Pulse Oximetry 100 100 97 Oxygen Delivery Me thod 12/04/23 15:01 12/04/23 15:31 12/04/23 16:02 Temperature Pulse Rate 69 Pulse Rate [Pulse Oximeter] Respiratory Rate Blood Pressure 150/87 H 155/99 H Blood Pressure [Ri ght Arm] Blood Pressure [Ri ght Upper Arm] Pulse Oximetry 96 Oxygen Delivery Me thod 12/04/23 16:04 12/04/23 16:05 12/04/23 16:31 Temperature Pulse Rate 75 70 71 Pulse Rate [Pulse Oximeter] Respiratory Rate Blood Pressure 157/84 H 159/98 H Blood Pressure [Ri ght Arm] Blood Pressure [Ri ght Upper Arm] Pulse Oximetry 95 95 97 Oxygen Delivery Me thod 12/04/23 16:32 12/04/23 17:00 12/04/23 17:01 Temperature Pulse Rate 73 68 70 Pulse Rate [Pulse Oximeter] Respiratory Rate Blood Pressure 168/96 H Blood Pressure [Ri ght Arm] Blood Pressure [Ri ght Upper Arm] Pulse Oximetry 96 97 98 Oxygen Delivery Me thod 12/04/23 17:02 12/04/23 17:31 12/04/23 17:48 Temperature 97.6 F Pulse Rate 70 Pulse Rate [Pulse Oximeter] 77 Respiratory Rate 18 Blood Pressure 127/81 Blood Pressure [Ri ght Arm] 157/89 H Blood Pressure [Ri ght Upper Arm] Pulse Oximetry 98 96 Oxygen Delivery Me thod Room Air 12/04/23 19:00 12/04/23 19:00 12/04/23 22:27 Temperature 98.1 F Pulse Rate Pulse Rate [Pulse Oximeter] 62 Respiratory Rate 18 18 18 Blood Pressure Blood Pressure [Ri ght Arm] 135/79 Blood Pressure [Ri ght Upper Arm] Pulse Oximetry 96 96 96 Oxygen Delivery Me thod Room Air Room Air Room Air 12/04/23 23:00 12/04/23 23:00 12/05/23 03:00 Temperature 97.8 F Pulse Rate Pulse Rate [Pulse Oximeter] 70 71 Respiratory Rate 16 16 16 Blood Pressure Blood Pressure [Ri ght Arm] 133/87 139/85 Blood Pressure [Ri ght Upper Arm] Pulse Oximetry 95 96 Oxygen Delivery Me thod Room Air Room Air 12/05/23 07:30 12/05/23 07:30 12/05/23 08:17 Temperature 98.6 F Pulse Rate Pulse Rate [Pulse Oximeter] 63 63 Respiratory Rate 18 18 Blood Pressure Blood Pressure [Ri ght Arm] 123/76 Blood Pressure [Ri ght Upper Arm] Pulse Oximetry 94 94 Oxygen Delivery Me thod Room Air Room Air 12/05/23 11:15 Temperature 97.9 F Pulse Rate Pulse Rate [Pulse Oximeter] 64 Respiratory Rate 18 Blood Pressure Blood Pressure [Ri ght Arm] 122/74 Blood Pressure [Ri ght Upper Arm] Pulse Oximetry 97 Oxygen Delivery Me thod Room Air Labs Labs: Laboratory Results - last 24 hr 12/04/23 12/04/23 12/04/23 14:20 14:37 18:12 WBC 13.74 H RBC 4.93 Hgb 16.1 Hct 46.7 MCV 95 MCH 33 MCHC 35 RDW Coeff of Andrea 12.3 Plt Count 268 Neut % (Auto) 91.2 H Lymph % (Auto) 5.2 L Gila % (Auto) 3.3 Eos % (Auto) 0.1 Baso % (Auto) 0.1 Neut # (Auto) 12.50 H Lymph # (Auto) 0.70 L Gila # (Auto) 0.50 Eos # (Auto) 0.00 Baso # (Auto) 0.00 Abs Immat Gran (auto) 0.00 Imm/Tot Granulo (auto) 0.1 Sodium 140 Potassium 3.9 Chloride 104 Carbon Dioxide 26 Anion Gap 10 BUN 16 Creatinine 0.7 Estimated Creat Clear 78.44 Estimated GFR 102 Glucose 127 H Calcium 9.5 Total Bilirubin 0.7 AST 27 ALT 23 Alkaline Phosphatase 83 C-Reactive Protein 0.6 Total Protein 7.8 Albumin 4.8 Lipase 73 Urine Color Yellow Urine Appearance Clear Urine pH 6.0 Ur Specific [place] >= 1.030 Urine Protein Trace A Urine Glucose (UA) Negative Urine Ketones 1+ A Urine Blood Negative Urine Nitrite Negative Urine Bilirubin Negative Urine Urobilinogen 0.2 Ur Leukocyte Esterase Negative Urine RBC 0-2 Urine WBC 0-2 Ur Squamous Epith Cells Few Calcium Oxalate Crystal Moderate A Amorphous Sediment Few A Urine Bacteria Few A SARS-CoV-2 (PCR) Negative SARS-CoV-2 Influenza Type A (PCR) Negative PCR FLU A Influenza Type B (PCR) Negative PCR FLU B Lab Acknowledgement Test Added POC Creatinine 0.8 12/05/23 05:51 WBC 10.93 RBC 4.44 Hgb 14.6 Hct 43.0 MCV 97 MCH 33 MCHC 34 RDW Coeff of Andrea Plt Count 257 Neut % (Auto) Lymph % (Auto) Gila % (Auto) Eos % (Auto) Baso % (Auto) Neut # (Auto) Lymph # (Auto) Gila # (Auto) Eos # (Auto) Baso # (Auto) Abs Immat Gran (auto) Imm/Tot Granulo (auto) Sodium 139 Potassium 4.0 Chloride 109 Carbon Dioxide 22 Anion Gap 8 BUN 20 Creatinine 0.8 Estimated Creat Clear 80.83 Estimated GFR 98 Glucose 125 H Calcium 8.7 Total Bilirubin AST ALT Alkaline Phosphatase C-Reactive Protein Total Protein Albumin Lipase Urine Color Urine Appearance Urine pH Ur Specific [place] Urine Protein Urine Glucose (UA) Urine Ketones Urine Blood Urine Nitrite Urine Bilirubin Urine Urobilinogen Ur Leukocyte Esterase Urine RBC Urine WBC Ur Squamous Epith Cells Calcium Oxalate Crystal Amorphous Sediment Urine Bacteria SARS-CoV-2 (PCR) Influenza Type A (PCR) Influenza Type B (PCR) Lab Acknowledgement POC Creatinine
[2023-12-05] MEDS: SODIUM CHLORIDE 0.9 % (FLUSH) 10 ML SYRINGE 5 ML IVF ×2 (13:15→17:25)
--- NOTE | 2023-12-05 14:36 | PC.NURSE ---
End of shift pt has been pleasant. abd pain is 2-8. 4 mg MS was given this am with relief. IV is patent. he can ice chips. no gas and BS are hypo. he had 140 mls (90 po contrast and 50 water) abd is distended and tender. he has been up walking and has walked 7 times so far. sadly no gas yet, IV is patent. is here and is loving and caring. Surgeon MD and Hospitalist saw pt today. KUB x ray tomorrow am
[2023-12-05] MEDS: ENOXAPARIN 40 MG/0.4 ML INJ SUBCUT (21:02)
--- NOTE | 2023-12-06 00:03 | PC.NURSE ---
Pt continuing to ambulate. Reports large loose BM. Minimal ice chips to moisten mouth, pt otherwise remains NPO with maintenance fluids running. Reports decreased pain this evening but denies any flatus. BS hypoactive.
[2023-12-06 03:55] VITALS: BP 110/66; PULSE 57; RESP 16; TEMP 36.7; O2SAT 94
--- NOTE | 2023-12-06 07:00 | CRLHL7_ITS ---
For Patients: As a result of the Century Cures Act, medical imaging exams and procedure reports are released immediately into your electronic medical record. You may view this report before your referring provider. If you have questions, please contact your health care provider. Indication: Small-bowel follow-through. Technique: Abdomen 1 view. Comparison: CT [id number]. Findings/Impression: Enteric contrast material is seen within the ascending and descending colon as well as the rectum. Scattered air filled loops of small and large bowel are seen throughout the abdomen. Limited evaluation for free air on supine radiograph. Visualized lung bases are clear. No acute osseous abnormality. Dictated by Mariam Alejandra MD @ 12/06/2023 7:17:50 AM (Electronically Signed)
[2023-12-06 07:03] LABS: Hematocrit 39.8 % (37.0-53.0); Hemoglobin* 13.1 gm/dL (13.5-17.5); Mean Corpuscular HGB Conc 33 gm/dL (32-36); Mean Corpuscular Hemoglobin 33 pg (26-34); Mean Corpuscular Volume 99 fL (80-100); Platelet Count* 207 K/uL (140-440); Red Blood Count 4.02 m/uL (4.30-5.90)
[2023-12-06 07:11] LABS: Chloride* 112 mmol/L (96-114); Potassium* 3.6 mmol/L (3.6-5.1); Sodium* 140 mmol/L (135-149)
[2023-12-06 07:13] LABS: Creatinine* 0.8 mg/dL (0.5-1.5); Est. Creatinine Clearance* 80.83; Estimated Glomerular Filt Rate 98 ml/min
[2023-12-06 07:14] LABS: Anion Gap 5 mEq/L (7-15); Blood Urea Nitrogen* 21 mg/dL (7-30); Calcium* 8.1 mg/dL (8.4-10.6); Carbon Dioxide* 23 mmol/L (20-32); Glucose* 107 mg/dL (60-115)
[2023-12-06 07:28] LABS: Slide Review Reflex No
[2023-12-06 07:54] VITALS: BP 126/76; PULSE 60; RESP 16; TEMP 36.8; O2SAT 96
[2023-12-06] MEDS: LEVOTHYROXINE 100 MCG TABLET PO (08:02)
--- NOTE | 2023-12-06 08:06 | PC.NURSE ---
Patient pleasant, alert and oriented. Ambulated in room independently. Patient reports having watery stools x2 tonight. Reports some discomfort with loose stools but otherwise denies pain. Bowel sounds active. Tolerated ice chips.?
[2023-12-06] MEDS: SODIUM CHLORIDE 0.9 % (FLUSH) 10 ML SYRINGE 5 ML IVF (09:08)
[2023-12-06] MEDS: PANTOPRAZOLE SODIUM 40 MG INJ IVP (09:08)
[2023-12-06] MEDS: 0.9 % SODIUM CHLORIDE 1000 ml 1,000 ML 100 ML IV ×2 (09:08→18:31)
--- NOTE | 2023-12-06 09:57 | PM.GSPN ---
Subjective Subjective Date Seen: 12/06/23 Interval history: Primitivo is doing well. His pain is gone. He has been tolerating clears. He has had multiple bowel movements. Exam Narrative: Exam Narrative: General: No acute distress CV: Regular rate Abdomen: Soft, nontender. Const: Vital Signs, click to edit/add: Vital Signs - 24 hr 12/05/23 11:15 12/05/23 15:00 12/05/23 15:00 Temperature 97.9 F Pulse Rate [Pulse Oximeter] 64 64 Respiratory Rate 18 18 18 Blood Pressure [Ri ght Arm] 122/74 Pulse Oximetry 97 94 Oxygen Delivery Me thod Room Air Room Air 12/05/23 15:00 12/05/23 19:00 12/05/23 23:00 Temperature 98.8 F 98.3 F 98.6 F Pulse Rate [Pulse Oximeter] 64 63 94 Respiratory Rate 18 18 20 Blood Pressure [Ri ght Arm] 137/81 132/77 105/68 Pulse Oximetry 94 95 94 Oxygen Delivery Me thod Room Air Room Air Room Air 12/05/23 23:00 12/06/23 03:55 12/06/23 07:54 Temperature 98.0 F 98.3 F Pulse Rate [Pulse Oximeter] 57 L 60 Respiratory Rate 20 16 16 Blood Pressure [Ri ght Arm] 110/66 126/76 Pulse Oximetry 94 94 96 Oxygen Delivery Me thod Room Air Room Air Room Air 12/06/23 07:54 Temperature Pulse Rate [Pulse Oximeter] Respiratory Rate 16 Blood Pressure [Ri ght Arm] Pulse Oximetry 96 Oxygen Delivery Me thod Room Air Labs/Imaging Labs Labs: White blood cell count remains normal. Imaging Imaging: Abdominal x-ray shows contrast passage into the colon. Progress Note: A&P Assessment and plan (1) Small bowel obstruction: Problem details: -remote history of colon surgery, polyp removal, 20+ years ago -CT shows small bowel obstruction, suspicious findings for inflammatory bowel disease. Mild leukocytosis now resolved, LFTs unremarkable, afebrile. -vomit x1 prior to arrival in ED, last BM 12/02, not passing gas, + belching -bowel rest, IVF 100 mL/hr, minimal ice chips, IV Protonix -pain and nausea management as needed -encourage ambulation -will need NGT if vomiting returns -Appreciate general surgery following for potential surgical needs Status: Acute Plan The patient is a 63-year-old male with a small-bowel obstruction from some type of enteritis. This has now resolved. Still unclear cause. I would recommend advancing his diet tomorrow as long as he tolerates full liquids today. He may then discharge home. I do recommend he undergo outpatient colonoscopy with terminal ileoscopy to evaluate for inflammatory bowel disease.
[2023-12-06] MEDS: MORPHINE 4 MG/ML INJ IVP (10:12)
[2023-12-06 10:57] VITALS: BP 126/78; PULSE 60; RESP 16; TEMP 37.1; O2SAT 94
[2023-12-06] MEDS: KETOROLAC 30 MG/ML inj IVP (12:23)
--- NOTE | 2023-12-06 13:43 | P.IMPN_ITS ---
Progress Note: A&P Assessment and plan (1) Small bowel obstruction: Problem details: -remote history of colon surgery, polyp removal, 20+ years ago -CT shows small bowel obstruction, suspicious findings for inflammatory bowel disease. Mild leukocytosis now resolved, LFTs unremarkable, afebrile. -vomit x1 prior to arrival in ED, last BM 12/02, not passing gas, + belching -bowel rest, IVF 100 mL/hr, minimal ice chips, IV Protonix -pain and nausea management as needed -encourage ambulation -will need NGT if vomiting returns -Appreciate general surgery following for potential surgical needs Status: Acute Subjective Date Seen: 12/06/23 Interval history: Daily Progress Note - Hospital Medicine Day #: 3 CC: Small bowel obstruction OVERNIGHT UPDATES FROM STAFF & MED, LAB, IMAGING UPDATES -felt better last evening. passed stool. more pain starting at 6 am today. still passed a little stool. asking for morphine. abdominal xray this morning Enteric contrast material is seen within the ascending and descending colon as well as the rectum. Scattered air filled loops of small and large bowel are seen throughout the abdomen. Limited evaluation for free air on supine radiograph. Visualized lung bases are clear. No acute osseous abnormality. CT from admission reviewed. Small-bowel obstruction. No ischemia or closed loop morphology. The distal transition point is the beginning of a 20 cm segment of the distal and terminal ileum that is fairly significantly inflamed. Findings are suspicious for inflammatory bowel disease but there are not any findings that are specific to inflammatory bowel disease. There is a moderate amount of mesenteric edema and a small amount of free fluid. No perforation, abscess, or definite fistula seen. labs: WBC downtrending Objective: distended but soft. no rebound. Vitals: see above Lungs: Clear. Cardiac: S1S2. Disposition/Potential discharge - Likely to return to previous living situation. Today I spent 50minutes seeing the patient, reviewing Expanse and EPIC notes/diagnostics, discussing the care plan with our care time that includes social work, PT/OT, pharmacy, RT, halfway and documenting my impressions and plan in the medical record. Exam Const: Vital Signs, click to edit/add: Vital Signs - 24 hr 12/05/23 15:00 12/05/23 15:00 12/05/23 15:00 Temperature 98.8 F Pulse Rate [Pulse Oximeter] 64 64 Respiratory Rate 18 18 18 Blood Pressure [Ri ght Arm] 137/81 Pulse Oximetry 94 94 Oxygen Delivery Me thod Room Air Room Air 12/05/23 19:00 12/05/23 23:00 12/05/23 23:00 Temperature 98.3 F 98.6 F Pulse Rate [Pulse Oximeter] 63 94 Respiratory Rate 18 20 20 Blood Pressure [Ri ght Arm] 132/77 105/68 Pulse Oximetry 95 94 94 Oxygen Delivery Me thod Room Air Room Air Room Air 12/06/23 03:55 12/06/23 07:54 12/06/23 07:54 Temperature 98.0 F 98.3 F Pulse Rate [Pulse Oximeter] 57 L 60 Respiratory Rate 16 16 16 Blood Pressure [Ri ght Arm] 110/66 126/76 Pulse Oximetry 94 96 96 Oxygen Delivery Me thod Room Air Room Air Room Air 12/06/23 10:57 Temperature 98.7 F Pulse Rate [Pulse Oximeter] 60 Respiratory Rate 16 Blood Pressure [Ri ght Arm] 126/78 Pulse Oximetry 94 Oxygen Delivery Me thod Room Air Labs Labs: Laboratory Results - last 24 hr 12/06/23 05:52 WBC 7.50 RBC 4.02 L Hgb 13.1 L Hct 39.8 MCV 99 MCH 33 MCHC 33 Plt Count 207 Sodium 140 Potassium 3.6 Chloride 112 Carbon Dioxide 23 Anion Gap 5 L BUN 21 Creatinine 0.8 Estimated Creat Clear 80.83 Estimated GFR 98 Glucose 107 Calcium 8.1 L
[2023-12-06 14:24] LABS: C Reactive Protein* 0.7 mg/dL (0.5-1.0)
[2023-12-06 15:10] VITALS: BP 112/69; PULSE 61; RESP 16; TEMP 37; O2SAT 95
--- NOTE | 2023-12-06 19:03 | PC.NURSE ---
Pt alert and oriented. Pt had complaints of pain ranging from 3-7; see EMAR for intervention. Pt independent in room. Pt had two loose bowel movements in AM and one in afternoon. Pt encouraged to walk in hallways. Pt walked in hallways five times and reported less pain after walking. Pt?s at bedside most of shift. Pt advanced to full liquid diet; tolerated well. No complaints of nausea or vomiting. ?
[2023-12-06 20:20] VITALS: BP 116/67; PULSE 54; RESP 16; TEMP 37.2; O2SAT 96
[2023-12-06] MEDS: ENOXAPARIN 40 MG/0.4 ML INJ SUBCUT (20:46)
[2023-12-06 23:00] VITALS: RESP 20; O2SAT 95
[2023-12-07] VITALS: BP 121/73; PULSE 52; RESP 20; TEMP 36.4; O2SAT 95
[2023-12-07 04:00] VITALS: BP 120/70; PULSE 52; RESP 18; TEMP 37.1; O2SAT 94
[2023-12-07] MEDS: 0.9 % SODIUM CHLORIDE 1000 ml 1,000 ML 100 ML IV (04:13)
[2023-12-07] MEDS: LEVOTHYROXINE 100 MCG TABLET PO (06:41)
[2023-12-07 06:47] LABS: Hematocrit 38.1 % (37.0-53.0); Hemoglobin* 12.8 gm/dL (13.5-17.5); Mean Corpuscular HGB Conc 34 gm/dL (32-36); Mean Corpuscular Hemoglobin 33 pg (26-34); Mean Corpuscular Volume 97 fL (80-100); Platelet Count* 193 K/uL (140-440); Red Blood Count 3.91 m/uL (4.30-5.90); White Blood Count* 6.91 K/uL (4.50-11.00)
[2023-12-07 06:54] LABS: Slide Review Reflex No
[2023-12-07 07:00] VITALS: PULSE 55; RESP 18; O2SAT 97
[2023-12-07 07:06] LABS: Albumin* 3.2 g/dL (3.3-5.0); Chloride* 111 mmol/L (96-114)
[2023-12-07 07:07] LABS: Potassium* 3.5 mmol/L (3.6-5.1); Sodium* 137 mmol/L (135-149)
[2023-12-07 07:09] LABS: Alkaline Phosphatase* 54 U/L (40-150); Anion Gap 6 mEq/L (7-15); Aspartate Amino Transferase* 19 U/L (12-35); Bilirubin Total* 0.6 mg/dL (0.1-1.5); Carbon Dioxide* 20 mmol/L (20-32); Creatinine* 0.7 mg/dL (0.5-1.5); Est. Creatinine Clearance* 80.83; Estimated Glomerular Filt Rate 102 ml/min; Total Protein* 5.6 g/dL (6.0-8.3)
[2023-12-07 07:10] LABS: Alanine Aminotransferase* 13 U/L (4-50); Blood Urea Nitrogen* 17 mg/dL (7-30); Calcium* 7.8 mg/dL (8.4-10.6); Glucose* 105 mg/dL (60-115); Lipase* 46 U/L (23-300)
[2023-12-07 07:12] LABS: C Reactive Protein* 0.6 mg/dL (0.5-1.0)
[2023-12-07 08:00] VITALS: BP 123/76; PULSE 55; RESP 18; TEMP 36.6; O2SAT 97
--- NOTE | 2023-12-07 08:51 | PC.NURSE ---
Patient ambulates independently in room. C/o having a little acid reflux last night but declined any antacid. HOB elevated at that time and john sapphire given to sip on. He had no further complaints. Reported a little stomach discomfort that was relieved after walking early this morning. VSS.
[2023-12-07] MEDS: ONDANSETRON 2 MG/ML inj 4 MG IVP (09:45)
--- NOTE | 2023-12-07 09:54 | PM.GSPN ---
Subjective Subjective Date Seen: 12/07/23 Interval history: Casper is doing well! he has no pain. He continues to move his bowels. He tolerated a full liquid diet yesterday. Exam Narrative: Exam Narrative: General: No acute distress abdomen: Soft. Nontender. Const: Vital Signs, click to edit/add: Vital Signs - 24 hr 12/06/23 10:57 12/06/23 15:10 12/06/23 15:10 Temperature 98.7 F 98.6 F Pulse Rate [Pulse Oximeter] 60 61 Respiratory Rate 16 16 16 Blood Pressure [Ri ght Arm] 126/78 112/69 Pulse Oximetry 94 95 95 Oxygen Delivery Me thod Room Air Room Air Room Air 12/06/23 20:20 12/06/23 23:00 12/07/23 00:00 Temperature 99.0 F 97.5 F L Pulse Rate [Pulse Oximeter] 54 L 52 L Respiratory Rate 16 20 20 Blood Pressure [Ri ght Arm] 116/67 121/73 Pulse Oximetry 96 95 95 Oxygen Delivery Me thod Room Air Room Air Room Air 12/07/23 04:00 Temperature 98.8 F Pulse Rate [Pulse Oximeter] 52 L Respiratory Rate 18 Blood Pressure [Ri ght Arm] 120/70 Pulse Oximetry 94 Oxygen Delivery Me thod Room Air Labs/Imaging Labs Labs: White blood cell count within normal limits per Progress Note: A&P Assessment and plan (1) Small bowel obstruction: Problem details: -remote history of colon surgery, polyp removal, 20+ years ago -CT shows small bowel obstruction, suspicious findings for inflammatory bowel disease. Mild leukocytosis now resolved, LFTs unremarkable, afebrile. -vomit x1 prior to arrival in ED, last BM 12/02, not passing gas, + belching -bowel rest, IVF 100 mL/hr, minimal ice chips, IV Protonix -pain and nausea management as needed -encourage ambulation -will need NGT if vomiting returns -Appreciate general surgery following for potential surgical needs Status: Acute Assessment and Plan: the patient is a 63-year-old male with a small-bowel obstruction which has now resolved. This is from some sort of enteritis. Radiographically it does appear like it could represent inflammatory bowel disease. Since his symptoms have resolved and he is now tolerating full liquid diet, we will advance his diet to regular. If he does well with this he can discharge home. He and I today discussed him undergoing colonoscopy in the near future. He does normally get his colonoscopies with Dr. Mckeon. He should be able to perform a terminal ileoscopy and potentially view or biopsy the area in question.
--- NOTE | 2023-12-07 12:40 | P.IMPN_ITS ---
Progress Note: A&P Assessment and plan (1) Small bowel obstruction: Problem details: -remote history of colon surgery, polyp removal, 20+ years ago -CT shows small bowel obstruction, suspicious findings for inflammatory bowel disease. Mild leukocytosis now resolved, LFTs unremarkable, afebrile. -vomit x1 prior to arrival in ED, last BM 12/02, not passing gas, + belching -bowel rest, IVF 100 mL/hr, minimal ice chips, IV Protonix -pain and nausea management as needed -encourage ambulation -Appreciate general surgery following for potential surgical needs Status: Acute Subjective Date Seen: 12/07/23 Interval history: Daily Progress Note - Hospital Medicine Day #: 4 CC: Small bowel obstruction OVERNIGHT UPDATES FROM STAFF & MED, LAB, IMAGING UPDATES -no pain meds since yesterday -slow improvement -no appetite CT from admission reviewed. Small-bowel obstruction. No ischemia or closed loop morphology. The distal transition point is the beginning of a 20 cm segment of the distal and terminal ileum that is fairly significantly inflamed. Findings are suspicious for inflammatory bowel disease but there are not any findings that are specific to inflammatory bowel disease. There is a moderate amount of mesenteric edema and a small amount of free fluid. No perforation, abscess, or definite fistula seen. labs: WBC downtrending Objective: less distended. Vitals: see above Lungs: Clear. Cardiac: S1S2. Disposition/Potential discharge - Likely to return to previous living situation. Today I spent 50minutes seeing the patient, reviewing Expanse and EPIC notes/diagnostics, discussing the care plan with our care time that includes social work, PT/OT, pharmacy, RT, penitentiary and documenting my impressions and plan in the medical record. Exam Const: Vital Signs, click to edit/add: Vital Signs - 24 hr 12/06/23 15:10 12/06/23 15:10 12/06/23 20:20 Temperature 98.6 F 99.0 F Pulse Rate [Pulse Oximeter] 61 54 L Respiratory Rate 16 16 16 Blood Pressure [Ri ght Arm] 112/69 116/67 Pulse Oximetry 95 95 96 Oxygen Delivery Me thod Room Air Room Air Room Air 12/06/23 23:00 12/07/23 00:00 12/07/23 04:00 Temperature 97.5 F L 98.8 F Pulse Rate [Pulse Oximeter] 52 L 52 L Respiratory Rate 20 20 18 Blood Pressure [Ri t Arm] 121/73 120/70 Pulse Oximetry 95 95 94 Oxygen Delivery Me thod Room Air Room Air Room Air Labs Labs: Laboratory Results - last 24 hr 12/06/23 12/06/23 12/07/23 05:52 13:55 05:48 WBC 6.91 RBC 3.91 L Hgb 12.8 L Hct 38.1 MCV 97 MCH 33 MCHC 34 Plt Count 193 Sodium 137 Potassium 3.5 L Chloride 111 Carbon Dioxide 20 Anion Gap 6 L BUN 17 Creatinine 0.7 Estimated Creat Clear 80.83 Estimated GFR 102 Glucose 105 Calcium 7.8 L Total Bilirubin 0.6 AST 19 ALT 13 Alkaline Phosphatase 54 C-Reactive Protein 0.7 0.6 Total Protein 5.6 L Albumin 3.2 L Lipase 46 Lab Acknowledgement Test Added
--- NOTE | 2023-12-07 13:25 | P.DS_ITS ---
DS: Providers Provider Date Seen: 12/07/23 Date of admission: 12/05/23 12:57 Primary care physician: Mukund Phillips MD Admitting Clinician: Sil Fernández PA-C Consults: 12/04/23 19:32 Consult to Physician [CONS] Routine Comment: Consulting Provider: Ashley Cid Has provider been notified: Yes Attending Physician on discharge: Masha Kirby MD Date of Discharge: 12/07/23 DS: Diagnosis Discharge Diagnosis (1) Small bowel obstruction: Status: Acute Problem details: -remote history of colon surgery, polyp removal, 20+ years ago -CT shows small bowel obstruction, suspicious findings for inflammatory bowel disease. Mild leukocytosis now resolved, LFTs unremarkable, afebrile. -discharged 12/07. improved. Will f/u with Dr. Mckeon and PCP for outpatient colonoscopy. DS: Summary Hospital Course Hospital Course: FINAL DIAGNOSIS/FOLLOW UP ISSUES: 1. Small-bowel obstruction. Resolved with supportive care. Concerning findings on CT for IBD. Patient can see PCP and arrange a outpatient colonoscopy in a few weeks. BRIEF HOSPITAL COURSE: Patient was admitted for 3 days. Synopsis of acute inpatient issues are outlined above. Chronic medical conditions with notable findings outlined above. Patient came in with abdominal pain. Acute onset. Vomiting. Diagnosed with small-bowel obstruction. CT abdomen pelvis showed inflammation around the ileum consistent with IBD. There is no prior history of IBD. One distant surgery for polypectomy. Patient did not need an NG tube. His diet was advanced. His pain was well managed. He was passing stool prior to discharge. Outpatient workup appropriate. DISCHARGE MEDICATIONS: See Reconciled list - SIGNIFICANT CHANGES: P.r.n. Zofran, ppi, Oxy Specific instructions to the patient and follow-up are outlined below. REVIEW OF SYSTEMS No new chest pain or dyspnea Pain controlled No voiding difficulties Tolerating diet challenge PHYSICAL EXAM: CONSTITUTIONAL: Alert. No acute distress. VITAL SIGNS: see record. HEENT: Normocephalic, atraumatic. PERRL, EOMI, conjunctivae pink, no scleral icterus. Ears and nose externally normal. Pharynx normal. NECK: No JVD. No carotid bruit, no thyromegaly, no adenopathy. CHEST: Clear to auscultation bilaterally. HEART: S1 and S2 normal. Edema ABDOMEN: Soft, nontender. Normal bowel sounds. MUSCULOSKELETAL: No gross joint deformity or swelling. NEURO: Cranial nerves intact. Grossly intact. No asymmetric findings. SKIN: No rashes, petechiae, concerning changes PSYCHIATRIC: Mood euthymic. DISPOSITION: Home with Time spent on discharge 37 minutes. Status at Discharge Functional status at discharge: independent ambulation Overall status at discharge: patient is progressing back to baseline Time Spent with Patient Time attestation: Total time spent providing and/or coordinating discharge services: Time spent: Greater than 30 minutes Exam Const: Vital Signs, click to edit/add: Vital Signs - 24 hr 12/06/23 15:10 12/06/23 15:10 12/06/23 20:20 Temperature 98.6 F 99.0 F Pulse Rate [Pulse Oximeter] 61 54 L Respiratory Rate 16 16 16 Blood Pressure [Ri ght Arm] 112/69 116/67 Pulse Oximetry 95 95 96 Oxygen Delivery Me thod Room Air Room Air Room Air 12/06/23 23:00 12/07/23 00:00 12/07/23 04:00 Temperature 97.5 F L 98.8 F Pulse Rate [Pulse Oximeter] 52 L 52 L Respiratory Rate 20 20 18 Blood Pressure [Ri ght Arm] 121/73 120/70 Pulse Oximetry 95 95 94 Oxygen Delivery Me thod Room Air Room Air Room Air DS: Data Data Completed and Pending Labs on day of discharge: Labs from last 24 hours 12/07/23 12/06/23 12/06/23 05:48 13:55 05:52 WBC 6.91 RBC 3.91 L Hgb 12.8 L Hct 38.1 MCV 97 MCH 33 MCHC 34 Plt Count 193 Sodium 137 Potassium 3.5 L Chloride 111 Carbon Dioxide 20 Anion Gap 6 L BUN 17 Creatinine 0.7 Estimated Creat Clear 80.83 Estimated GFR 102 Glucose 105 Calcium 7.8 L Total Bilirubin 0.6 AST 19 ALT 13 Alkaline Phosphatase 54 C-Reactive Protein 0.6 0.7 Total Protein 5.6 L Albumin 3.2 L Lipase 46 Lab Acknowledgement Test Added Discharge Plan Discharge Disposition: Home, Self-Care Date of Admission: 12/05/23 12:57 Attending Provider on Discharge: Masha Kirby Consulting Providers: Ashley Cid Primary Care Provider: Mukund Phillips Condition: Stable Anticipated Discharge Date/Time: 12/07/23 13:13 Discharge Medications: New omeprazole 20 mg capsule,delayed release(DR/EC) 20 mg PO DAILY Qty: 30 0RF ondansetron 4 mg tablet,disintegrating 4 mg PO Q8H Qty: 30 0RF oxycodone 5 mg tablet 5 mg PO Q6H PRN (Reason: pain) Qty: 20 0RF Continued levothyroxine 100 mcg tablet 100 mcg PO DAILY B Complex Plus Vitamin C 58-78-97-5-300 mg capsule 1 cap PO Q48H PRN Rx Instructions: give with food (meal/snack) Antacid Calcium 215 mg calcium (500 mg) tablet,chewable 430 mg PO DAILY cholecalciferol (vitamin D3) 25 mcg (1,000 unit) capsule 25 mcg PO DAILY magnesium oxide 400 mg magnesium capsule 400 mg PO DAILY multivitamin Tablet 1 tab PO DAILY zinc acetate 25 mg (zinc) capsule 25 mg PO DAILY Rx Instructions: Take by mouth. Held omega-3 fatty acids 1,000 mg capsule 1,000 mg PO DAILY Hold Instructions: Resume on 12/28/23. Until you feel better! can make you nauseated. Discharge Orders: Discharge Order (Routine); Ordered 12/07/23 Ordered By: Masha Kirby Activity Level: Activity as Tolerated Discharge Diet: Regular Follow Up Appointments: [facility] [Provider Group] - 12/14/23 (any [facility] health provider (if PCP is not available) - f/u 1 week. Needs appt with Mike for outpatient colonoscopy. ) Mukund Phillips MD [Primary Care Provider] - [facility]: [facility]
--- NOTE | 2023-12-07 15:42 | PC.NURSE ---
DENIED NEED FOR PAIN MEDS. ADVANCED TO REGULAR DIET AND TOLERATED MODERATE AMOUNT WITH NO INCREASED PAIN OR N/V. SALINE LOCK DC'D. PATIENT STATED HE WOULD LIKE TO DC HOME IF OKAY WITH MD. REVIEWED DC INSTRUCTIONS WITH PATIENT AND HE DC'D HOME VIA .
== END 2023-12-07 14:34 | disposition home or self-care (01) | DRG 247 ==
LOC: ED 17:24 → MEDSURG 17:37
PROVIDERS: Physician Assistant; Student in an Organized Health Care Education/Training Program; Admitting Provider Family Medicine; Emergency Provider Family Medicine; PCP Family Medicine; Visit Provider Family Medicine
DX: K56.609 Unspecified intestinal obstruction, unspecified as to partial versus complete obstruction (principal); K52.3 Indeterminate colitis; E78.5 Hyperlipidemia, unspecified; E03.9 Hypothyroidism, unspecified; Z86.010 Personal history of colon polyps
CPT/HCPCS: 36415; 74018; 74177; 80048; 80053; 81001; 82565; 83690; 85025; 85027; 86140; 87086; 87631; 99284; A9270; C9113; G0378; J1650; J1885; J2270; J2405; J7030; Q9967

== ENCOUNTER 2024-07-16 07:59 | Day surgery (SDC) | payer BC, MEDICARE, SELFPAY ==
[2024-07-16] VITALS (24 sets, daily range): BP systolic 102–126; BP diastolic 55–89; PULSE 43–75; RESP 10–18; TEMP 35.2–36.8; O2SAT 91–100; BMI 33.5
[2024-07-16] MEDS: MIDAZOLAM HCL 1 MG/ML inj IVP (07:30)
[2024-07-16] MEDS: LACTATED RINGERS 1000 ML 1,000 ML 100 ML IV ×3 (07:30→14:29)
[2024-07-16] MEDS: ACETAMINOPHEN 500 MG TABLET 1000 MG PO ×3 (07:30→23:47)
[2024-07-16] MEDS: OXYCODONE (CR) 10 MG TAB.ER.12H PO (07:30)
[2024-07-16] MEDS: CELECOXIB 200 MG CAPSULE PO (07:30)
[2024-07-16] MEDS: fentaNYL 100 MCG/2 ML inj IVP (07:30)
--- OUTSIDE RECORDS SUMMARY | 2024-07-16 08:02 | XMS_ITS | Clinical Summary ---
Author Organization [facility] Address [place], [place] [address] Care Team Providers Care Spar Machine Operator Name Role Phone Votel, Omi Acosta MD Primary Care Provider + Allergies No known active allergies Medications Medication Sig Dispensed Refills Start Date End Date Status multivitamin capsule Take 1 Capsule by mouth once daily. Active calcium carbonate (CALCIUM 500 ORAL) Take 1,000 mg by mouth. Active B-complex with vitamin C (SUPER B COMPLEX-VITAMIN C ORAL) Take by mouth once every other day if needed. Active omega 4-laz-qlv-fish-turme tatyana 417 mg-120 mg- 276 mg-600 mg cap Take by mouth. Act bertram meloxicam 15 mg tabletIndications:Bi lateral primary osteoarthritis of knee Take 1 Tablet (15 mg) by mouth once daily. 30 Tablet 1 05/16/2024 Active levothyroxine (SYNTHROID) 100 mcg tabletIndications:Hy pothyroidism (acquired) TAKE 1 TABLET(100 MCG) BY MOUTH BEFORE BREAKFAST 90 Tablet 3 05/21/2024 Active Zinc Acetate, Oral, 25 mg (zinc) cap Take by mouth. 4 Discontinue d(*Patient states no longer taking) Active Problems Problem Noted Date Diagnosed Date Bilateral primary osteoarthritis of knee 023 Varicose veins of right lower extremity 07/21/20 23 Hypothyroidism, acquired 05/23/2020 Overview: May 2020: TSH over 6. Thyroperoxidase antibodies are also high at 149. Starting Levothyroxine 50mcg. Vitamin D deficiency 2013 Mixed hyperlipidemia 2013 Overweight(278.02) 2013 Colon polyp 09/06/2010 Overview: Colonoscopy 08/2010 polyp repeat in 5 years Colonoscopy 07/2020 polyps, repeat in 5 years Resolved Problems Problem Noted Date Diagnosed Date Resolved Date Tobacco abuse 2013 07/04/2024 Encounters Date Type Department Care Team Description 07/04/2024 7:55 AM CDT Preop Visit [facility] [address] [place] [address] Omi Lopez MD Preoperative Exam (Bilateral total knee, 07/16/24, [place], Dr. Caal) 07/04/2024 Travel 07/01/2024 Travel 05/21/2024 7:30 AM CDT Office Visit [facility] [address] [place] [address] Omi Lopez MD Physical (63 year old male); Immunization/Injection 05/21/2024 Travel 05/16/2024 8:40 AM CDT Office Visit [facility] [address] [place] [address] Mukund Phillips MD Musculoskeletal Problem (Follow up bilateral knee pain) 05/16/2024 Travel 05/14/2024 Travel 05/07/2024 Medical Messaging [facility] [address] [place] [address] Mukund Phillips MD Knees from Last 3 Months Immunizations Name Administration Dates Next Due COVID-19 vaccine (HyprKey NTAtieva 30mcg/0.3mL) PFMDV 10/28/2021,04/02/2021,03/12/2021 Influenza, IIV3 (Age >=3 years) 08/24/2010 Influenza, IIV4 12/21/2021,09/18/2020,10/02/2019 Pneumococcal Conj 20-valent (Prevnar 20) 024 Tdap 03/21/2018,12/05/2011 Zoster (Shingrix-RZV, recombinant) 12/03/2020, Family [...] PHQ-2 Answer Date Recorded PHQ-2 TOTAL SCORE 0 05/21/2024 Social Connections Answer Date Recorded Frequency of Communication with Friends and Fami ly 0 05/21/2024 Financial Resource Strain Answer Date R ecorded Difficulty of Paying Living Expenses 3 05/21/2024 Difficulty of Paying Living Expenses Not on file 05/21/2024 Food Insecurity Answer Date Recorded Worried About Running Out of Food in the Last Ye ar 1 05/21/2024 Transportation Needs Answer Date Record ed Lack of Transportation (Medical) 1 05/21/2024 Housing Stability Answer Date Recorded Unable to Pay for Housing in the Last Year 1 05/21/2024 Sex and Gender Information Value Date Recorded Sex Assigned at Male 12/20/2021 8:21 PM [employer] Gender Identity Male 12/20/2021 8:21 PM [employer] Sexual Orientation Straight 12/20/2021 8: 21 PM [employer] Obstetrics History Last Filed Vital Signs Vital Sign Reading Time Taken Comments Blood Pressure 118/71 07/04/2024 7:55 AM CDT Pulse 52 07/04/2024 7:55 AM CDT Temperature 36.7 ??C (98.1 ??F) 07/04/2024 7:55 AM CD T Respiratory Rate - - Oxygen Saturation 96% 07/04/2024 7:55 AM CDT Inhaled Oxygen Concentration - - Weight 109.1 kg (240 lb 8 oz) 07/04/2024 7:55 AM CDT Height 180.3 cm (5' 11) 07/04/2024 7:55 AM CDT Body Mass Index 33.54 07/04/2024 7:55 AM CDT Plan of Treatment Health Maintenance Due Date Last Done Comments Hepatitis C screening for ag e [birth year][address] (for lung CA) ag e 50-80 2008 AAA screening age 65-74 2023 COVID-19 vaccine series (2022- season) 2023 10/28/2021, 04/02/2021, 03/12/2021 Influenza for age 65+ 07/21/2024 12/21/2021 , 09/18/2020, 10/02/2019, Additional history exists Depression screening for age 12+ 05/21/2025 05/21/2024, 12/21/2021, 12/03/2020, Additional history exists BMI (ht and wt on same day) for age 18+ 07/04/2025 07/04/2024, 05/21/2024, 12/22/2023, Additional history exists Colonoscopy through age 75 07/24/202507/24, 07/24/2020, 09/06/2010, Additional history exists Tetanus booster 03/21/2028 03/21/2018, 11/20, 12/05/2011 (Completed outside of [facility]) Lipids for age 45-75 05/21/2029 05/21/2024, 03/23/2023, 12/21/2021, Additional history exists Tdap Completed 03/21/2018, 12/05/2011 Zoster (shingles) series for age 50+ Completed 12/03/2020, 07/01/2020 Pneumococcal series for age 65+ Completed 4 Procedures Procedure Name Priority Date/Time Associated Diagnosis Comments EKG 12 LEAD Routine 05/21/2024 1:52 PM CDT Preop examination TSH Routine 05/21/2024 8:36 AM CDT Hypothyroidism (acquired) PSA TOTAL SCREEN Routine 05/21/2024 8:36 AM CDT Prostate cancer screening LIPID PANEL W REFLEX MEASURED LDL Routine 05/21/2024 8:36 AM CDT Routine general medical examination at a health care facility BASIC METABOLIC PANEL Routine 05/21/2024 8:36 AM CDT Routine general medical examination at a health care facility CBC W PLT NO DIFF Routine 05/21/2024 8:3 6 AM CDT Routine general medical examination at a health care facility COLONOSCOPY 07/24/2020 11:31 AM CDT from Last 3 Months or Most Recently Relevant to Health Maintenance Results * EKG 12 LEAD (05/21/2024 1:52 PM CDT) Omi Lopez MD EKG ORD * (ABNORMAL) LIPID PANEL W REFLEX MEASURED LDL (05/21/2024 8:36 AM CDT) CHOLESTEROL,TOTAL 229(H) 100 - 199 mg/dL 05/21/2024 7:03 PM CDT [facility] Comment: Cholesterol, Total Reference Ranges Desirable <200 mg/dL Borderline 200-239 mg/dL High >=240 mg/dL TRIGLYCERIDES 278(H) <150 mg/dL 05/21/2024 7:03 PM CDT [facility] HDL CHOLESTEROL 38(L) >40 mg/dL 7:03 PM CDT [facility] NON-HDL CHOLESTEROL 191(H) <145 mg/dl 05/21/2024 7:03 PM CDT [facility] CHOL/HDL RATIO 6.03(H) <4.50 05/21/2024 7:03 PM CDT [facility] LDL CHOLESTEROL 135(H) <=130 mg/dL 05/21/2024 7:03 PM CDT [facility] VLDL CHOLESTEROL 56(H) <=30 mg/dL 05/21/2024 7:03 PM CDT [facility] PROVIDER ORDERED STATUS RANDOM 05/21/2024 7:03 PM CDT [facility] Blood BLOOD SPECIMEN / Unknown Venipuncture / Unknown 05/21/2024 8:36 AM CDT 05/21/2024 8:37 AM CDT Omi Lopez MD CHEMISTRY Performing Organization Address [facility] Co de Phone Number [facility] [address] [place] [id number], [place] * (ABNORMAL) TSH (05/21/2024 8:36 AM CDT) Pathologist [facility] TSH 14.00(H) 0.27 - 4.20 uIU/mL 05/21/2024 7:39 PM CDT [facility] Blood BLOOD SPECIMEN / Unknown Venipuncture / Unknown 05/21/2024 8:36 AM CDT 05/21/2024 8:37 AM CDT [facility] - 05/21/2024 7:39 PM CDT In Adults, TSH values between 5.00 and 10.00 uIU/ml do not necessarily indicate the presence of Hypothyroidism. Correlation with clinical findings such as presence of goiter and/or Thyroperoxidase (TPO) Antibody may be helpful. For more information please refer to BEE 2004; 291: 228-238. Omi Lopez MD CHEMISTRY Performing Organization Address [facility] Co de Phone Number [facility] [address] [place] [address], [place] * (ABNORMAL) CBC W PLT NO DIFF (05/21/2024 8:36 AM CDT) WHITE BLOOD COUNT 4.6 4.5 - 11.0 thou/cu mm 05/21/2024 8:44 AM CDT [facility] RED BLOOD COUNT 4.16(L) 4.30 - 5.90 mil/cu mm 05/21/2024 8:44 AM CDT [facility] HEMOGLOBIN 13.7 13.5 - 17.5 g/dL 05/21/2024 8:44 AM CDT [facility] HEMATOCRIT 40.4 37.0 - 53.0 % 05/21/2024 8:44 AM CDT [facility] MCV 97 80 - 100 fL 05/21/2024 8:44 AM CDT [facility] MCH 32.9 26.0 - 34.0 pg 05/21/2024 8:44 AM CDT [facility] MCHC 33.9 32.0 - 36.0 g/dL 05/21/2024 8:44 AM CDT [facility] RDW 13.2 11.5 - 15.5 % 05/21/2024 8:44 AM CDT [facility] PLATELET COUNT 169 140 - 440 thou/cu mm 05/21/2024 8:44 AM CDT [facility] MPV 9.3 6.5 - 11.0 fL 05/21/2024 8:44 AM CDT [facility] Blood BLOOD SPECIMEN / Unknown Venipuncture / Unknown 05/21/2024 8:36 AM CDT 05/21/2024 8:37 AM CDT Omi Lopez MD HEMATOLOGY [facility] [address] [place] [address], * (ABNORMAL) BASIC METABOLIC PANEL (05/21/2024 8:36 AM CDT) SODIUM 141 136 - 145 mmol/L 05/21/2024 7:03 PM T [facility] POTASSIUM 4.6 3.5 - 5.1 mmol/L 05/21/2024 7:03 PM T [facility] CHLORIDE 107 98 - 107 mmol/L 05/21/2024 7:03 PM T [facility] CO2,TOTAL 25 22 - 29 mmol/L 05/21/2024 7:03 PM T [facility] ANION GAP 9 5 - 18 05/21/2024 7:03 PM T [facility] GLUCOSE 102(H) 70 - 99 mg/dL 05/21/2024 7:03 PM T [facility] CALCIUM 9.0 8.8 - 10.2 mg/dL 05/21/2024 7:03 PM T [facility] BUN 14 8 - 23 mg/dL 05/21/2024 7:03 PM CDT [facility] CREATININE 0.90 0.70 - 1.20 mg/dL 05/21/2024 7:03 PM CDT [facility] BUN/CREAT RATIO 16 10 - 20 7:03 PM CDT [facility] eGFR >90 >90 mL/min/1.7 3m2 05/21/2024 7:03 PM CDT [facility] Comment:As of 2022, eG FR is calculated by the CKD-EPI creatinine equation without race adjustment. ??eGFR can be influenced by muscle mass, exercise, and diet. ??The reported eGFR is an estimation only and is only applicable if the renal function is stable. Blood BLOOD SPECIMEN / Unknown Venipuncture / Unknown 05/21/2024 8:36 AM CDT 05/21/2024 8:37 AM CDT Omi Lopez MD CHEMISTRY [facility] [address] [place] [address], * PSA TOTAL SCREEN - Dx Auto-associated (05/21/2024 8:36 AM CDT) PSA TOTAL (SCREEN) 1.01 <4.00 ng/mL 05/21/2024 7:03 PM CDT [facility] Blood BLOOD SPECIMEN / Unknown Venipuncture / Unknown 05/21/2024 8:36 AM CDT 05/21/2024 8:37 AM CDT Narrative [facility] - 05/21/2024 7:03 PM CDT The test method changed on 05/16/2023. If this test has been used for serial monitoring, rebaselining is recommended. Rebaselining consists of 2 measurements, collected 3-6 weeks apart. The Vi Elecsys total PSA assay is an electrochemiluminescence immunoassay ECLIA performed on the Vi Leona e immunoassay analyzers. Values obtained with different assay methods may be different and cannot be used interchangeably. Omi Lopez MD LABORATORY [facility] [address] [place] [address], * COLONOSCOPY (07/24/2020 11:31 AM CDT) 07/24/2020 11:3 1 AM CDT Narrative Transcriptions Leandro Mckeon MD - 07/24/2020 12:12 PM CDT Patient Name: Casper Vergara Procedure Date: 07/24/2020 Gender: Male Date of : 1960 Admit Type: Outpatient Procedure: Colonoscopy Proceduralist: Leandro Mckeon MD , Rama Rosenthal (Nurse) Indications/Pre-Op Diagnosis: Screening for colorectal malignant neoplasm, Last colonoscopy: August 2010 Medications: Fentanyl 100 micrograms IV, Midazolam 2 mgIV, The level of sedation administered wasmoderate Procedure Description: The patient had risks, benefits and alternatives explained to andgave informed consent. The patient had a stable cardiopulmonary status and judged an adequate candidate for conscious sedation. The [id number] was passed through the anus and advanced tothe cecum, identified by appendiceal orifice and ileocecal valve. The colonoscopy was performed without difficulty. The patient toleratedthe procedure well. The quality of the bowel preparation was good. The ileocecal valve, appendiceal orifice, and rectum were photographed. Complications: No immediate complications. Estimated Blood Loss & Specimen: Estimated blood loss: none. Specimen collected - Yes and sent to Laboratory Findings: The perianal and digital rectal examinations were normal. A 3 mm polyp was found in the sigmoid colon. The polyp was sessile.The polyp was removed with a cold snare. Resection and retrieval were complete. A 4 mm polyp was found in the ascending colon. The polyp was sessile. The polyp was removed with a cold snare. Resection and retrieval were complete. A few small-mouthed diverticula were found in the sigmoid colon. The exam was otherwise without abnormality on direct and retroflexion views. Impressions/Post-Op Diagnosis: - One 3 mm polyp in the sigmoid colon, removed with a cold snare. Resected and retrieved. - One 4 mm polyp in the ascending colon, removed with a cold snare. Resected and retrieved. - Diverticulosis in the sigmoid colon. - The examination was otherwise normal on direct and retroflexionviews. Recommendation: - Patient has a contact number available for emergencies. The signsand symptoms of potential delayed complications were discussed with the patient. Return to normal activities tomorrow. Written discharge instructions were provided to the patient. - Resume previous diet. - Continue present medications. - Await pathology results. - Repeat colonoscopy is recommended. The colonoscopy date will be determined after pathology results from today's exam become available for review. Moderate Sedation: Moderate (conscious) sedation was administered by the endoscopy nurse and supervised by the endoscopist. The following parameters were monitored: oxygen saturation, heart rate, respiratory rate, blood pressure, adequacy of pulmonary ventilation and reponse to care. [facility] and nursing notes for moderate sedation details. Total physician intraservice time was 21 minutes. Leandro Mckeon MD 07/24/2020 12:12:50 PM This report has been signed electronically. Note Initiated On: 07/24/2020 11:31 AM Procedure Code(s): --- Professional --- 28227, Colonoscopy, flexible; with removalof tumor(s), polyp(s), or other lesion(s) bysnare technique Diagnosis Code(s): --- Professional --- Z12.11, Encounter for screening formalignant neoplasm of colon K63.5, Polyp of colon K57.30, Diverticulosis of large intestine without perforation or abscess withoutbleeding CPT copyright 2019 [employer]. All rights reserved. The codes documented in this report are preliminary and upon rn midwife reviewmay be revised to meet current compliance requirements. Scope In: 11:50:20 AM Scope Withdrawal Time 0 hours 11 minutes 26 seconds Scope Out: 12:08:58 PM Leandro Mckeon MD PROCEDURE ORD from Last 3 Months or Most Recently Relevant to Health Maintenance Care Teams Spar Machine Operator Relationship Specialty Start Date End Date Votel, Omi Acosta MD [address] [place] [address] PCP - General Family Practice 07/01/20
[2024-07-16] MEDS: SODIUM CHLORIDE 0.9 % (FLUSH) 10 ML SYRINGE IVF ×2 (09:13→16:56)
--- NOTE | 2024-07-16 09:22 | SUR.PREOP ---
TIME?OUT:? PT/RN/MDA?VERIFICATION?OF?SURGICAL?SITE,?PROCEDURE,?AND?CONSENT OBTAINED?PRIOR?TO?INVASIVE?PROCEDURE.bilateral total knees leora viera rn pt, consent
--- NOTE | 2024-07-16 10:15 | W.PM.NB ---
Nerve Block Nerve Block Time Seen by Provider: 11:00 Date Seen: 07/16/24 Type of block requested by surgeon for post-operative analgesia: adductor canal Side: right Time out performed: Yes Verification of patient name: Yes Verification of date of : Yes Site marking: site marked Name of person performing procedure: David Vallejo Continuous monitoring Was continuous monitoring of O2 sat, B/P, cardiac catheterization technician, recorded every 15 minutes?: Yes Procedure Checklist: sterile prep, needles and gloves Ultrasound guided. Images saved: Yes Medications given in 5ml increments after negative aspiration: Marcaine %: 0.25 mL: 15 Needle gauge: 20 and Exparel mL: 10 Needle gauge: 20 Patient tolerated procedure well: Yes Additional comments: injected in 5ml increments after negative aspiration Block Charges Block Charge (with Pro Fee): Femoral Nerve Use of Ultrasound Machine for Block: Yes- US Guidance/pain block
--- NOTE | 2024-07-16 10:17 | W.PM.NB ---
Nerve Block Nerve Block Time Seen by Provider: 11:00 Date Seen: 07/16/24 Type of block requested by surgeon for post-operative analgesia: adductor canal Side: left Time out performed: Yes Verification of patient name: Yes Verification of date of : Yes Site marking: site marked Name of person performing procedure: David Vallejo Continuous monitoring Was continuous monitoring of O2 sat, B/P, playground monitor, recorded every 15 minutes?: Yes Procedure Checklist: sterile prep, needles and gloves Ultrasound guided. Images saved: Yes Medications given in 5ml increments after negative aspiration: Marcaine %: 0.25 mL: 15 Needle gauge: 20 and Exparel mL: 10 Needle gauge: 20 Patient tolerated procedure well: Yes Additional comments: injected in 5ml increments after negative aspiration Block Charges Block Charge (with Pro Fee): Femoral Nerve Use of Ultrasound Machine for Block: Yes- US Guidance/pain block
--- NOTE | 2024-07-16 10:18 | P.NB_ITS ---
Nerve Block Nerve Block Time Seen by Provider: 11:00 Date Seen: 07/16/24 Type of block requested by surgeon for post-operative analgesia: geniculars Side: right Time out performed: Yes Verification of patient name: Yes Verification of date of : Yes Site marking: site marked Name of person performing procedure: David Vallejo Continuous monitoring Was continuous monitoring of O2 sat, B/P, satellite project site monitor, recorded every 15 minutes?: Yes Procedure Checklist: sterile prep, needles and gloves Ultrasound guided. Images saved: No Medications given in 5ml increments after negative aspiration: Marcaine %: 0.25 mL: 10 Needle gauge: 20 Patient tolerated procedure well: Yes Additional comments: Injected in 4ml increments after negative aspiration Block Charges Block Charge (with Pro Fee): Genicular Nerve Block Use of Ultrasound Machine for Block: No
--- NOTE | 2024-07-16 10:19 | P.NB_ITS ---
Nerve Block Nerve Block Time Seen by Provider: 11:00 Date Seen: 07/16/24 Type of block requested by surgeon for post-operative analgesia: geniculars Side: left Time out performed: Yes Verification of patient name: Yes Verification of date of : Yes Site marking: site marked Name of person performing procedure: David Vallejo Continuous monitoring Was continuous monitoring of O2 sat, B/P, vehicle monitor technician, recorded every 15 minutes?: Yes Procedure Checklist: sterile prep, needles and gloves Ultrasound guided. Images saved: No Medications given in 5ml increments after negative aspiration: Marcaine %: 0.25 mL: 10 Needle gauge: 20 Patient tolerated procedure well: Yes Additional comments: Injected in 4ml increments after negative aspiration Block Charges Block Charge (with Pro Fee): Genicular Nerve Block Use of Ultrasound Machine for Block: No
--- NOTE | 2024-07-16 10:28 | SUR.PREOP ---
TIME?OUT:1030 PT/RN/MDA?VERIFICATION?OF?SURGICAL?SITE,?PROCEDURE,?AND?CONSENT OBTAINED?PRIOR?TO?INVASIVE?PROCEDURE.Jaspal HAILEY Vallejo CRNA Pt, Consent
[2024-07-16] MEDS: CEFAZOLIN 2 GM INJ IVP (11:27)
[2024-07-16] MEDS: TRANEXAMIC ACID 100 MG/ML INJ 1000 MG IV (11:27)
--- NOTE | 2024-07-16 14:19 | CRLHL7_ITS ---
For Patients: As a result of the Century Cures Act, medical imaging exams and procedure reports are released immediately into your electronic medical record. You may view this report before your referring provider. If you have questions, please contact your health care provider. INDICATION: Postop TKA. TECHNIQUE: Views of the right knee. FINDINGS: There is a right TKA. Components appear well seated. Adjacent postop soft tissue air. Dictated by Kehinde Munoz MD @ 07/17/2024 1:13:20 PM (Electronically Signed)
--- NOTE | 2024-07-16 14:19 | CRLHL7_ITS ---
For Patients: As a result of the Century Cures Act, medical imaging exams and procedure reports are released immediately into your electronic medical record. You may view this report before your referring provider. If you have questions, please contact your health care provider. INDICATION: Postop TKA. TECHNIQUE: Two views of the left knee. FINDINGS: New left TKA. Components appear well seated. Adjacent postop soft tissue air. Dictated by Kehinde Munoz MD @ 07/17/2024 1:13:52 PM (Electronically Signed)
--- NOTE | 2024-07-16 14:20 | PM.ORPRC ---
Procedure Note Date of procedure: 07/16/24 Procedure: PREOPERATIVE DIAGNOSIS: Bilateral knee osteoarthritis POSTOPERATIVE DIAGNOSIS: Bilateral knee osteoarthritis NAME OF OPERATION: Bilateral total knee arthroplasty SURGEON: Liang Sims MD [employer] DRIVER: Ashley Aguilar PA-C, ZACKARY Issa ANESTHESIA: Spinal ESTIMATED BLOOD LOSS: 0 mL COMPLICATIONS: None SPECIMENS: None DRAINS: None PREOPERATIVE ANTIBIOTICS: Ancef 2 grams IMPLANTS: 1. J&J Attune # 7 posterior stabilized femur 2. # 7 fixed-bearing tibia 3. # 7 posterior stabilized, 5 mm fixed-bearing polyethylene 4. 41 patella INDICATIONS: The patient is a 64-year-old with a longstanding history of severe, unrelenting bilateral knee pain secondary to end-stage (grade IV) right knee osteoarthritis. Despite appropriate nonoperative management, including activity modification, anti-inflammatories, [id number] pain medication, bracing, physical therapy, and injections they continue to have pain and disability. Operative intervention was offered. The risks, benefits and expected outcomes were discussed in detail. These included but were not limited to: Infection, bleeding, injury to blood vessel or nerve, venous thromboembolism. All questions were answered to their satisfaction. Use of an medical assistant float was necessary throughout the case for patient positioning and safety, soft tissue retraction, and closure. PROCEDURE: Spinal anesthesia was administered. The patient was placed supine on the operating table. The medical assistant float made sure the patient was positioned appropriately. Both lower extremities were prepped and draped in the usual sterile fashion. The right knee was approached first. It was exsanguinated with the Leandro bandage. The pneumatic tourniquet was inflated to 300 mmHg. A standard anterior incision was made with the knee in flexion. Subcutaneous dissection was sharply taken through fascial layer #1. Full-thickness medial and lateral flaps were elevated. The medical assistant float retracted the soft tissues and protected them throughout the case. A standard subvastus approach was made. The patella was subluxed. The infrapatellar fat pad was debrided. The menisci and cruciate ligaments were sharply d?brided. Marginal osteophytes were d?brided with the rongeur. The drill was used to penetrate the femoral canal. The canal was aspirated and irrigated with pulse lavage. The intramedullary femoral guide was placed for a 5-degree valgus cut, removing 10 mm off the distal femur. The saw was used to make the cut. Whitesides line and the trans epicondylar axis were marked. The femoral sizing guide was pinned onto the distal femur. Three degrees of external rotation nicely parallels the transepicondylar axis. Pins were placed for posterior referencing. The four-in-one cutting guide was pinned onto the distal femur. The anterior, posterior, and chamfer cuts were made. The medical assistant float protected the collateral ligaments. The box cutting guide was pinned. The box cuts were made. The boxed trial was placed and was an excellent fit. Drill holes for the lugs were made. Attention was then turned to the proximal tibia. The extramedullary tibial guide was placed for a neutral varus/valgus cut with 5 degrees of posterior slope, removing 2 mm based off the medial tibial surface. The medical assistant float protected the collateral ligaments and the neurovascular bundle. The saw was used to make the cut. Trial components were placed. The knee was nicely balanced in both flexion and extension. The trial components were removed. The tray was placed in appropriate rotation, parallel to our tibial cutting pins. It was pinned by the medical assistant float and the drill and the punch were used. The tray was removed. The punch was used again. We placed a bone plug in the femoral canal. Attention was then turned to the patella. [place] patellar thickness was 24 mm. The lobster claw resection guide was used with the 9.5 mm anshul. The saw was used to make the cut. Drill holes were made by the medical assistant float. The trial was placed and was an excellent fit. Cancellous surfaces were irrigated with pulse lavage and thoroughly dried by the medical assistant float. We cemented the tibial component, then the femoral component. We impacted the 5 mm polyethylene onto the tibial tray. The knee was brought into full extension. We then cemented the patellar component. Excessive cement was removed. The cement was allowed to harden. The knee was taken through a range of motion and was found to be nicely balanced in both flexion and extension. The patella tracks centrally. The medical assistant float did a three minute dilute Betadine solution soak. The medical assistant float irrigated the wound with 3 liters of normal saline via pulse lavage. The medical assistant float reapproximated the extensor mechanism with #1 Vicryl in an interrupted [id number] fashion. The medical assistant float then ran the extensor mechanism with a #1 PDO Stratafix. The medical assistant float closed the subcutaneous tissues with a 3-0 Stratafix and the skin with a running 3-0 Stratafix in a subcuticular fashion. Glue was used to seal the skin. The medical assistant float placed a dry dressing. The tourniquet was released. We then approached the left knee. It was exsanguinated with Leandro bandage. The pneumatic tourniquet inflated to 3 mmHg. The same standard subvastus approach was made. We resected 10 mm off the distal femur, 2 mm off the proximal tibia and 9.5 mm off of the patella. Identical components were used on the left side. The knee was nicely balanced when we were finished and the patella tracked centrally. Closure and dressing were identical to the right knee. The tourniquet was released. Sponge and needle counts were correct x2. The patient tolerated the procedure well. There were no apparent complications. They were carefully transferred to the hospital bed and taken to the postanesthesia care unit in satisfactory condition. PLAN: The patient will be mobilized with physical therapy. Aspirin will be used for DVT prophylaxis. They will be discharged to home once medically appropriate.
--- NOTE | 2024-07-16 15:10 | PM.IMCN1 ---
Date of Consult Consult date: 07/16/24 Primary Care Provider: Omi Lopez MD Consult Narrative Reason for consult: Narrative: HOSPITALIST CONSULT NAME OF OPERATION: Bilateral total knee arthroplasty SURGEON: Liang Sims MD ANESTHESIA: Spinal ESTIMATED BLOOD LOSS: 0 mL COMPLICATIONS: None The hospital medicine team was asked by the orthopedic surgery team to manage the patient's post-operative course given bilateral joint replacements, bradycardia, hypothyroidism. There have been no perioperative complications. I have updated and reviewed the active medical problems, past medical history, past surgical history, social history, allergies and medications in our electronic EMR. This includes a cross reference to care everywhere in [facility] and with [employer] [facility] databases. PHYSICAL EXAM: CODE STATUS: FULL CODE CONSTITUTIONAL: Conversive, good historian. A/O. Knows setting and context. VITAL SIGNS: see record. HEENT: Normocephalic, atraumatic. PERRL, EOMI, conjunctivae pink, no scleral icterus. Ears and nose externally normal. Pharynx normal. NECK: No JVD. No carotid bruit, no thyromegaly, no adenopathy. CHEST: Clear to auscultation bilaterally HEART: S1 and S2 normal. ABDOMEN: Flat, soft, nontender. Normal bowel sounds. Moderately obese. EXTREMITIES: No edema. MUSCULOSKELETAL: NEURO: Cranial nerves intact. Mentation normal. Normal affect. SKIN: No rashes, petechiae, concerning changes PSYCHIATRIC: Mentation normal. INVESTIGATIONS: EMR Reviewed; Pre-OP Reviewed DISPOSITION: DVT: Agree with Ortho team decision GI: PO intake [facility] Medical History (Updated 07/16/24 @ 16:35 by Masha Kirby MD) Bilateral primary osteoarthritis of knee ?M17.0 - Bilateral primary osteoarthritis of knee (ICD-10) Vitamin D deficiency (06/14/13) ?E55.9 - Vitamin D deficiency, unspecified (ICD-10) Varicose veins of right lower extremity (07/21/23) ?I83.91 - Asymptomatic varicose veins of right lower extremity (ICD-10) Mixed hyperlipidemia (06/14/13) ?E78.2 - Mixed hyperlipidemia (ICD-10) Colon polyp (09/06/10) ?K63.5 - Polyp of colon (ICD-10) Osteoarthritis ?M19.90 - Unspecified osteoarthritis, unspecified site (ICD-10) Hypothyroidism ?E03.9 - Hypothyroidism, unspecified (ICD-10) Hyperlipidemia ?E78.5 - Hyperlipidemia, unspecified (ICD-10) Surgical History (Updated 07/16/24 @ 15:22 by Masha Kirby MD) History of bilateral knee arthroplasty ?Z96.653 - Presence of artificial knee joint, bilateral (ICD-10) History of colon surgery ?Z98.890 - Other specified postprocedural states (ICD-10) Family History (Updated 05/29/24 @ 09:05 by Kathy Rosas RN, RN) Mother Stroke Social History (Updated 12/05/23 @ 09:03 by Ashley Cid MD) Narrative: He works as a [employer] man. He does not smoke. He drinks 2 alcoholic drinks a day. What is your current living situation?: I presently have a place to live Problems where you live: no known problems Problems where you live details: na In the past 12 months, utilities in danger of being shut off: no In past 12 months, lack of transportation kept you from medical appts, meetings, work, or getting things needed for daily living: no In the past 12 mos, have been you worried that your food would run out before you had money to buy more?: never true In the past 12 mos, the food you bought just didn't last and you didn't have money to buy more?: never true Highest level of school completed/degree received: decline to answer Smoking Status: Former smoker What tobacco products do you use: cigarettes Smoking quit date/years: <= 15 years ago Do you use any of these nicotine containing products: None Second hand tobacco smoke exposure: No How often do you have a drink containing alcohol: monthly or less Alcohol type: beer How many standard drinks containing alcohol do you have on a typical day: 1 or 2 How often do you have six or more drinks on one occasion: Never AUDIT-C Alcohol total score: 1 Non-prescribed substance use: denies use Caffeine: Yes How often does anyone, including family, friends and others, physically hurt you: never How often does anyone, including family, friends and others, insult or talk down to you: never How often does anyone, including family, friends and others, threaten you with harm: never How often does anyone, including family, friends and others, scream or curse at you: never service: No Meds Home Medications and Allergies Home Medications ?Medication ?Instructions ?Recorded ?Confirmed ?Type levothyroxine 100 mcg tablet 100 mcg PO DAILY 12/04/23 07/16/24 History calcium carbonate (Antacid Calcium) 430 mg PO DAILY 12/05/23 07/16/24 History multivitamin 1 tab PO DAILY 12/05/23 07/16/24 History omega-3 fatty acids 1,000 mg 1,000 mg PO DAILY 12/05/23 07/16/24 History capsule vitamin B comp and C no.3 15 mg-10 1 cap PO Q48H PRN 12/05/23 07/16/24 History mg-50 mg-5 mg-300 mg capsule (B Complex Plus Vitamin C) meloxicam 15 mg tablet 15 mg PO DAILY 07/09/24 07/16/24 History zinc acetate 25 mg (zinc) capsule 25 mg PO DAILY 07/15/24 07/16/24 History Allergies Allergy/AdvReac Type Severity Reaction Status Date / Time No Known Drug Allergies Allergy Verified 07/16/24 08:38 Exam Const: Vital Signs, click to edit/add: Vital Signs - 24 hr 07/16/24 08:43 07/16/24 10:00 07/16/24 10:53 Temperature 97.4 F L Pulse Rate 48 L 45 L 43 L Respiratory Rate 18 18 16 Blood Pressure 116/80 126/78 115/81 Pulse Oximetry 96 96 95 Oxygen Delivery Me thod Room Air Room Air Nasal Cannula Oxygen Flow Rate 3 Assessment and Plan Assessment and plan (1) History of bilateral knee arthroplasty: Problem comment: Dr. Sims; [facility] Hospitalist team happy to follow patient thru discharge. We agree with aspirin VTE ppx and expect a routine postoperative course. Status: Acute (2) Bilateral primary osteoarthritis of knee: Problem comment: severe, good candidate for bilateral replacements Status: Acute (3) Bradycardia: Problem comment: previous outpatient appts reflect 52, 45, 54 for HR ECG is documented in the chart and reflects marked sinus bradycardia with a rate of 44. pt seems asymptomatic; will place on telemetry and observe Status: Acute (4) Hypothyroidism: Problem comment: -continue levothyroxine Status: Chronic (5) Adult BMI 33.0-33.9 kg/sq m: Status: Acute (6) Hyperlipidemia: Problem comment: -listed in medical history, not currently on medication Status: Chronic
--- NOTE | 2024-07-16 15:23 | W.ANESCHARGE ---
Anesthesia Charges Start Date/Time Anesthesia Start Date: 07/16/24 Anesthesia Start Time: 10:59 Stop Date/Time Anesthesia Stop Date: 07/16/24 Anesthesia Stop Time: 15:20
--- NOTE | 2024-07-16 15:58 | SUR.PHASEI ---
patient meets pacu d/c criteria
[2024-07-16] MEDS: HYDROmorphone 0.5 mg/0.5 ml inj IVP (16:56)
[2024-07-16] MEDS: ONDANSETRON 2 MG/ML inj 4 MG IVP (17:46)
[2024-07-16] MEDS: SODIUM CHLORIDE 0.9 % (FLUSH) 10 ML SYRINGE 5 ML IVF (17:48)
--- NOTE | 2024-07-16 19:17 | PC.NURSE ---
Pt is pleasant, alert, oriented and vitally stable. Came back from surgery around 1550. Pain ranging from 0-5/10, see mar for interventions. Dressings are dry and intact. Pt is on a regular diet, tolerating well. He has not been up or voided before 1900. ?
[2024-07-16] MEDS: SENNOSIDES 1 TAB TABLET 2 TAB PO (20:13)
[2024-07-16] MEDS: OXYCODONE 5 MG TABLET PO ×2 (20:13→23:47)
[2024-07-16] MEDS: ASPIRIN 81 MG TABLET EC PO (20:14)
[2024-07-16] MEDS: CEFAZOLIN 1 GM inj IVP (23:47)
[2024-07-17] MEDS: OXYCODONE 5 MG TABLET PO ×5 (01:09→13:18)
--- NOTE | 2024-07-17 02:00 | PC.NURSE ---
SHIFT NOTE 19-23: Pt pleasant, A&O. Up to the BR with gait belt and a walker 1 assist, tolerated well, denied lightheadedness and dizziness. Surgical dressings CDI. Active ice to both knees. PRN Oxycodone and scheduled Tylenol given for pain, pt reports adequate relief. Pt denies N/V, SOB and CP. Tele reads NSR, RAYMONS on RA.
[2024-07-17 03:00] VITALS: BP 114/60; PULSE 51; RESP 20; TEMP 36.6; O2SAT 93
[2024-07-17] MEDS: ACETAMINOPHEN 500 MG TABLET 1000 MG PO ×2 (05:33→11:35)
[2024-07-17] MEDS: LEVOTHYROXINE 100 MCG TABLET PO (06:19)
[2024-07-17 06:30] LABS: Basophils Absolute Auto 0.01 K/uL (0.00-0.30); Basophils Percent Auto 0.1 % (0.0-3.0); Eosinophils Absolute Auto 0.05 K/uL (0.00-0.50); Eosinophils Percent Auto 0.7 % (0.0-7.0); Hematocrit 36.5 % (37.0-53.0); Hemoglobin* 12.1 gm/dL (13.5-17.5); Immature Granulocytes Abs Auto 0.01 K/uL (0.00-0.30); Immature Granulocytes Pct Auto 0.1 %; Lymphocytes Percent Auto 14.1 % (20-44); Mean Corpuscular HGB Conc 33 gm/dL (32-36); Mean Corpuscular Hemoglobin 32 pg (26-34); Mean Corpuscular Volume 97 fL (80-100); Monocytes Percent Auto 10.1 % (0.0-11.0); Neutrophils Percent Auto 74.9 % (42.0-72.0); Platelet Count* 192 K/uL (140-440); RDW Coefficient of Variation % 12.8 % (11.5-15.5); Red Blood Count 3.75 m/uL (4.30-5.90); White Blood Count* 7.52 K/uL (4.50-11.00)
[2024-07-17 06:32] LABS: Slide Review Reflex No
--- NOTE | 2024-07-17 06:32 | PC.NURSE ---
End of shift note ([id number]): Patient pleasant, alert and oriented. Given PRN Oxycodone and ice packs applied for pain rated 5/10. Dressings to bilateral knees clean, dry and intact. CMS intact.?
[2024-07-17 06:46] LABS: Potassium* 4.3 mmol/L (3.6-5.1); Sodium* 136 mmol/L (135-149)
[2024-07-17 06:47] LABS: INR 1.14 (0.91-1.10); Prothrombin Time 15.3 Seconds
[2024-07-17 06:49] LABS: Creatinine* 0.8 mg/dL (0.5-1.5); Est. Creatinine Clearance* 77.39; Estimated Glomerular Filt Rate 98 ml/min
[2024-07-17 06:50] LABS: Blood Urea Nitrogen* 19 mg/dL (7-30)
[2024-07-17] MEDS: CEFAZOLIN 1 GM inj IVP (06:58)
[2024-07-17 07:25] VITALS: BP 107/59; PULSE 52; RESP 14; TEMP 36.7; O2SAT 98
[2024-07-17 07:29] VITALS: PULSE 61
[2024-07-17] MEDS: SENNOSIDES 1 TAB TABLET 2 TAB PO (07:59)
[2024-07-17] MEDS: ASPIRIN 81 MG TABLET EC PO (08:00)
--- NOTE | 2024-07-17 08:11 | PM.ORPN ---
Subjective Subjective Time Seen by Provider: 07:00 Date Seen: 07/17/24 Principal diagnosis: Day 1 s/p bilateral TKA Interval history: Patient is doing well and resting comfortably in his bed. Pain is well managed with frequent icing and scheduled oral pain medications. Denies: chest pain, SOB, fever, chills, nausea, vomiting, numbness/tingling distally. Patient's will be present around 8am this morning. She will be assisting Pat at home. Pat mentions he has 5 stairs that he will be managing at home. This morning, Pat c/o bilateral knee pain; right worse than left. Bilateral knees significantly swollen and fluctuant. Ortho Exam Narrative Exam Narrative: Incision/Dressing: Dressings appear clean and dry. No drainage present. Mepilex intact bilaterally. Bilateral knees appears significantly swollen and fluctuant, likely hemarthrosis. Bilateral knees are supple with no obvious erythema or excessive warmth. No ecchymosis or erythematous streaking. Warmth around the wound is appropriate. Ice is being utilized as needed. CMS: Intact distally with 2+ Dorsalis pedis and Posterior Tibial pulses. 5/5 motor strength dorsal and plantar flexion. Confirmed sensation distally. Intact straight leg raise. Calf: Bilateral calves are supple, with no swelling, pain, tenderness, erythema, discoloration or coolness to the touch. Constitutional: Patient is alert and oriented x3. Patient is in no acute distress and converses without labored breathing. Const Vital Signs, click to edit/add: Vital Signs - 24 hr 07/16/24 08:43 07/16/24 10:00 07/16/24 10:53 Temperature 97.4 F L Pulse Rate 48 L 45 L 43 L Pulse Rate [Right Pulse Oximeter] Respiratory Rate 18 18 16 Blood Pressure 116/80 126/78 115/81 Blood Pressure [Left Arm] Pulse Oximetry 96 96 95 Oxygen Delivery Method Room Air Room Air Nasal Cannula Oxygen Flow Rate 3 07/16/24 15:15 07/16/24 15:20 07/16/24 15:25 Temperature 97.1 F L Pulse Rate 48 L 47 L 43 L Pulse Rate [Right Pulse Oximeter] Respiratory Rate 10 L 12 12 Blood Pressure 103/69 110/67 111/68 Blood Pressure [Left Arm] Pulse Oximetry 95 95 96 Oxygen Delivery Method Room Air Oxygen Flow Rate 07/16/24 15:30 07/16/24 15:35 07/16/24 15:40 Temperature Pulse Rate 43 L 44 L 44 L Pulse Rate [Right Pulse Oximeter] Respiratory Rate 12 11 L 12 Blood Pressure 114/75 115/78 116/78 Blood Pressure [Left Arm] Pulse Oximetry 96 96 96 Oxygen Delivery Method Oxygen Flow Rate 07/16/24 15:45 07/16/24 15:50 07/16/24 16:00 Temperature 96.5 F L 95.7 F L 95.4 F L Pulse Rate 51 L 47 L 46 L Pulse Rate [Right Pulse Oximeter] Respiratory Rate 11 L 14 14 Blood Pressure 111/76 118/76 124/72 Blood Pressure [Left Arm] Pulse Oximetry 96 98 97 Oxygen Delivery Method Room Air Room Air Oxygen Flow Rate 0 07/16/24 16:13 07/16/24 16:15 07/16/24 16:30 Temperature 96.7 F L 97.3 F L Pulse Rate 46 L 46 L 47 L Pulse Rate [Right Pulse Oximeter] Respiratory Rate 12 14 Blood Pressure 115/81 116/84 Blood Pressure [Left Arm] Pulse Oximetry 95 98 Oxygen Delivery Method Room Air Room Air Oxygen Flow Rate 0 0 07/16/24 16:45 07/16/24 17:04 07/16/24 17:30 Temperature 97.4 F L 97.4 F L 98.0 F Pulse Rate 55 L 51 L Pulse Rate [Right Pulse Oximeter] Respiratory Rate 14 12 Blood Pressure 118/89 119/74 Blood Pressure [Left Arm] Pulse Oximetry 100 97 Oxygen Delivery Method Room Air Room Air Oxygen Flow Rate 0 0 07/16/24 18:00 07/16/24 18:57 07/16/24 20:00 Temperature 98.2 F 97.4 F L 97.6 F Pulse Rate 54 L 75 66 Pulse Rate [Right Pulse Oximeter] Respiratory Rate 14 14 16 Blood Pressure 102/73 119/82 115/75 Blood Pressure [Left Arm] Pulse Oximetry 95 95 96 Oxygen Delivery Method Room Air Room Air Room Air Oxygen Flow Rate 0 0 0 07/16/24 21:00 07/16/24 22:00 07/16/24 23:00 Temperature 97.4 F L 97.6 F 98.0 F Pulse Rate 60 58 L Pulse Rate [Right Pulse Oximeter] 63 Respiratory Rate 16 16 18 Blood Pressure 120/73 106/65 Blood Pressure [Left Arm] 120/55 L Pulse Oximetry 96 91 94 Oxygen Delivery Method Room Air Room Air Room Air Oxygen Flow Rate 0 0 07/16/24 23:00 07/16/24 23:00 07/17/24 03:00 Temperature 97.9 F Pulse Rate 57 L Pulse Rate [Right Pulse Oximeter] 51 L Respiratory Rate 20 Blood Pressure Blood Pressure [Left Arm] 114/60 Pulse Oximetry 92 93 Oxygen Delivery Method Room Air Room Air Oxygen Flow Rate 07/17/24 07:25 07/17/24 07:29 Temperature 98.1 F Pulse Rate 61 Pulse Rate [Right Pulse Oximeter] 52 L Respiratory Rate 14 Blood Pressure Blood Pressure [Left Arm] 107/59 L Pulse Oximetry 98 Oxygen Delivery Method Room Air Oxygen Flow Rate Assessment and Plan Assessment and plan (1) History of bilateral knee arthroplasty: Problem details: DOS: 07/16/24; Dr. Sims Status: Acute Plan - Significant bilateral knee fluctuance is likely hemarthrosis. Dr. Sims was notified. Morgan wrap was applied bilaterally. Aspiration is not recommended. - Complete 23 hour perioperative antibiotics. - PT/OT consults for education and assistance. - Weight bear as tolerated with a walker for assistance. - Prescribed analgesics as needed. Patient is content with current narcotic medications. Minimize narcotic pain medication use; wean off and discontinue as soon as possible. - DVT prophylaxis: aspirin 81 mg BID x 30 days. Also, frequent ambulation and ankle pumps when sedentary. - Social consult for discharge planning. - Anticipate patient will be discharged to home later this morning if the patient remains medically stable, pain is controlled and is safe with ambulation. - Return to clinic in 1 week for a wound check. Mepilex dressing will be removed at this appointment. Remove sooner if dressing becomes saturated. - Return to clinic in [address] Sims. - Phone Orthopedics with any questions or concerns. [phone]
[2024-07-17 11:29] VITALS: BP 122/64; PULSE 58; RESP 14; TEMP 36.5; O2SAT 94
[2024-07-17 11:35] VITALS: TEMP 36.5
--- NOTE | 2024-07-17 14:24 | PC.NURSE ---
Pt is pleasant, alert, oriented and vitally stable. Post op day 1. Pain ranging from 2-10/10, see mar for interventions. The dressings are dry and intact, they were camden wrapped this morning (07/17). Pt is on a regular diet, tolerating well. Voided around 1200. PT/OT cleared. IV removed at 1220, catheter intact. Discharge home with spouse.?
== END 2024-07-17 13:20 | disposition home or self-care (01) ==
LOC: OR 08:01 → MEDSURG 08:08
PROVIDERS: PCP Family Medicine; Visit Provider Orthopaedic Surgery
PROC: 0SRC0JZ Replacement of Right Knee Joint with Synthetic Substitute, Open Approach (ICD-10-PCS; CPT 27447; principal; 2024-07-16 10:30)
DX: M17.0 Bilateral primary osteoarthritis of knee (principal); G89.18 Other acute postprocedural pain; R00.1 Bradycardia, unspecified; E03.9 Hypothyroidism, unspecified; E66.3 Overweight; Z68.33 Body mass index [BMI] 33.0-33.9, adult; E78.2 Mixed hyperlipidemia; E55.9 Vitamin D deficiency, unspecified
CPT/HCPCS: 27447; 01402; 36415; 64447; 64454; 73560; 76942; 82565; 84132; 84295; 84520; 85025; 85610; 97110; 97116; 97161; 97165; 97530; A9270; C1776; C9290; J0665; J0690; J1100; J1170; J2250; J2405; J2704; J3010; J7120

== ENCOUNTER 2024-09-02 15:15 | Outpatient (RCR) | payer BC, SELFPAY | END 2024-09-09 09:27 | disposition home or self-care (01) | PROVIDERS: PCP Family Medicine; Visit Provider Orthopaedic Surgery | DX: M17.0 Bilateral primary osteoarthritis of knee (principal); Z96.653 Presence of artificial knee joint, bilateral; Z74.09 Other reduced mobility; R26.9 Unspecified abnormalities of gait and mobility; R53.1 Weakness; Z51.89 Encounter for other specified aftercare | CPT/HCPCS: 97110; 97112; 97116; 97140; 97161; 97164 ==

== ENCOUNTER 2025-08-09 13:26 | Emergency (ER) | payer MEDICARE, BC, SELFPAY ==
--- OUTSIDE RECORDS SUMMARY | 2025-08-09 13:28 | XMS_ITS | Clinical Summary ---
Author Organization [facility] Address [address] [place] [id number] Care Team Providers Care Operator Weapon Locating Radar Name Role Phone Votel, Omi Acosta MD Primary Care Provider + Allergies No known active allergies Medications multivitamin capsule Take 1 Capsule by mouth once daily. Active calcium carbonate (CALCIUM 500 ORAL) Take 1,000 mg by mouth. Active B-complex with vitamin C (SUPER B COMPLEX-VITAMIN C ORAL) Take by mouth once every other day if needed. Active omega 7-qmo-jtn-fish- turmeric 417 mg-120 mg- 276 mg-600 mg cap Take by mouth. A ctive Graduated Compression StockingsIndica tions:Lymphedem a For personal use. Length: calf Strength: 20-30 mmHg Circumference in cm: 1 Packet 5 Active levothyroxine (SYNTHROID) 112 mcg tabletIndicatio ns:Hypothyroidi sm (acquired) Take 1 Tablet (112 mcg) by mouth before breakfast. 60 Tablet 5 Active Active Problems Problem Noted Date Diagnosed Date Bilateral primary osteoarthritis of knee 023 Varicose veins of right lower extremity 07/21/20 23 Hypothyroidism, acquired 05/23/2020 Overview (05/25/2020): May 2020: TSH over 6. Thyroperoxidase antibodies are also high at 149. Starting Levothyroxine 50mcg. Vitamin D deficiency 2013 Mixed hyperlipidemia 2013 Overweight(278.02) 2013 Colon polyp 09/06/2010 Overview (07/28/2020): Colonoscopy 08/2010 polyp repeat in 5 years Colonoscopy 07/2020 polyps, repeat in 5 years Resolved Problems Problem Noted Date Diagnosed Date Resolved Date Tobacco abuse 2013 07/04/2024 Encounters Date Type Department Care Team Description 07/09/2025 Orders Only [facility] [address] [place] [address] Omi Lopez MD <No scans attached> 06/28/2025 Refill [facility] [address] [place] [address] Angeli Mcghee MD Refill Request (Levothyroxine) 06/25/2025 7:30 AM CDT Office Visit [facility] [address] [place] [address] Omi Lopez MD Medicare WELCOME Visit (65 year old male) 06/24/2025 Travel 06/05/2025 Refill [facility] [address] [place] [address] Omi Lopez MD Refill Request (Levothyroxine) from Last 3 Months Immunizations Immunization Administration Dates Next Due COVID-19 vaccine ([employer] 30mcg/0.3mL) MATTIE ALBRECHT 10/28/2021,04/02/2021,03/12/2021 Influenza, IIV3 (Age >=3 years) 08/24/2010 Influenza, IIV4 12/21/2021,09/18/2020,10/02/2019 Influenza, Inactivated IIV3 (Age 65+ Years) Preserv Free 12/24/2024 Pneumococcal Conj 20-valent (Prevnar 20) 024 Tdap [...] drink = 0.6 oz pur e alcohol) PHQ-2 Answer Date Recorded PHQ-2 TOTAL SCORE 0 06/24/2025 Social Connections Answer Date Recorded Do you often feel lonely or isolated from those around you? 0 06/24/2025 Financial Resource Strain Answer Date R ecorded Difficulty of Paying Living Expenses 3 06/24/2025 Difficulty of Paying Living Expenses Not on file 06/24/2025 Food Insecurity Answer Date Recorded Do you worry your food will run out before you are able to buy more? 1 06/24/2025 Transportation Needs Answer Date Record ed Does lack of transportation keep you from medica l appointments? 1 06/24/2025 Does lack of transportation keep you from work, meetings or getting things that you need? 1 06/24/2025 Housing Stability Answer Date Recorded What is your housing situation today? 1 06/24/2025 Utilities Answer Date Recorded Do you have trouble paying f or utilities (for example, heat, electricity, water, phone)? 1 06/24/2025 Sex and Gender Information Value Date Recorded Sex Assigned at Male 12/20/2021 8:21 PM TREASURY REPRESENTATIVE Legal Sex Male 5:24 AM TREASURY REPRESENTATIVE Gender Identity Male 12/20/2021 8:21 PM TREASURY REPRESENTATIVE Sexual Orientation Straight 12/20/2021 8: 21 PM TREASURY REPRESENTATIVE Obstetrics History Last Filed Vital Signs Vital Sign Reading Time Taken Comments Blood Pressure 97/61 06/25/2025 7:29 AM CDT Pulse 73 06/25/2025 7:29 AM CDT Temperature 36.7 C (98 F) 06/25/2025 7:29 AM CDT Respiratory Rate - - Oxygen Saturation 98% 06/25/2025 7:29 AM CDT Inhaled Oxygen Concentration - - Weight 103.7 kg (228 lb 11.2 oz) 06/25/2025 7:29 AM CDT Height 180.8 cm (5' 11.18) 06/25/2025 7:29 AM C DT Body Mass Index 31.74 06/25/2025 7:29 AM CDT Plan of Treatment Health Maintenance Due Date Last Done Comments Hepatitis C screening for age 18-79 [address] (for lung CA) age 50-80 2008 AAA screening age 65-74 2023 COVID-19 vaccine series ( - season) 2025 10/28/2021, 04/02/2021, 03/12/2021 Influenza Vaccine (#1) 2025 , 12/21/2021, 09/18/2020, Additional history exists Colonoscopy through age 75 07/24/202507/24, 07/24/2020, 09/06/2010, Additional history exists BMI (ht and wt on same day) for age 18+ 06/25/2026 06/25/2025, 12/24/2024, 10/22/2024, Additional history exists Depression screening for age 12+ 06/25/2026 06/25/2025, 06/24/2025, 05/21/2024, Additional history exists Medicare Wellness for age 65+ 06/26/2026 06/25/2025 Tetanus booster 03/21/2028 03/21/2018, 11/20, 12/05/2011 (Completed outside of [facility]) Lipids for age 45-75 06/25/2030 06/25/2025, 05/21/2024, 03/23/2023, Additional history exists RSV vaccine for adults or (1 - 1-dose 75+ series) 2033 Zoster (shingles) series for age 50+ Completed 12/03/2020, 07/01/2020 Pneumococcal series for age 50+ Completed 05/21/2024 Hepatitis B series for 19+ Aged Out N o longer eligible based on patient's age to complete this topic Procedures Procedure Name Priority Date/Time Associated Diagnosis Comments TSH Routine 06/25/2025 8:30 AM CDT Hypothyroidism (acquired) PSA TOTAL Routine 06/25/2025 8:30 AM CDT Prostate cancer screening CBC WITH AUTO DIFFERENTIAL Routine 06/25/2025 8:30 AM CDT Hypothyroidism (acquired) BASIC METABOLIC PANEL Routine 06/25/2025 8:30 AM CDT Hypothyroidism (acquired) ALT (SGPT) Routine 06/25/2025 8:30 AM CDT Mixed hyperlipidemia LIPID PANEL W REFLEX MEASURED LDL Routine 06/25/2025 8:30 AM CDT Mixed hyperlipidemia COLONOSCOPY 07/24/2020 11:31 AM CDT from Last 3 Months or Most Recently Relevant to Health Maintenance Results * (ABNORMAL) LIPID PANEL W REFLEX MEASURED LDL (06/25/2025 8:30 AM CDT) Pathologist [facility] CHOLESTEROL, TOTAL 225(H) <200 mg/dL [facility] HDL CHOLESTEROL 47 > OR = 40 mg/dL [facility] TRIGLYCERIDES 196(H) <150 mg/dL [facility] LDL-CHOLESTEROL 144(H) mg/dL (calc) [facility] Comment: Reference range: <100 Desirable range <100 mg/dL for primary prevention; <70 mg/dL for patients with CHD or diabetic patients with > or = 2 CHD risk factors. LDL-C is now calculated using the Leandro-[facility]field calculation, which is a validated novel method providing better accuracy than the Friedewald equation in the estimation of LDL-C. Leandro SS et al. BEE. 2013;310(19): 8626-6166 (http://education.Mi[employer]/faq/TKW915) CHOL/HDLC RATIO 4.8 <5.0 (calc) [facility] NON HDL CHOLESTEROL 178(H) <130 mg/dL (calc) [facility] Comment: For patients with diabetes plus 1 major ASCVD risk factor, treating to a non-HDL-C goal of <100 mg/dL (LDL-C of <70 mg/dL) is considered a therapeutic option. Blood BLOOD SPECIMEN / Unknown 06/25/2025 8:30 AM CDT 06/25/2025 8:31 AM CDT Omi Lopez MD CHEMISTRY Final Re sult Performing Organization Address [facility]/ZIP Co de Phone Number [facility] [address] [place] [address], [facility] [address] [place] [address] * (ABNORMAL) TSH (06/25/2025 8:30 AM CDT) [facility] TSH 8.21(H) 0.40 - 4.50 mIU/L [facility] Blood BLOOD SPECIMEN / Unknown 06/25/2025 8:30 AM CDT 06/25/2025 8:31 AM CDT Omi Lopez MD CHEMISTRY Final Re sult Performing Organization Address [facility] [[email or web address]] Co de Phone Number [facility] [address] [address], [facility] [address] [place] [address] * (ABNORMAL) CBC AND DIFFERENTIAL (06/25/2025 8:30 AM CDT) [facility] WHITE BLOOD CELL COUNT 4.7 3.8 - 10.8 Thousand/u L [facility] RED BLOOD CELL COUNT 4.32 4.20 - 5.80 Million/uL [facility] HEMOGLOBIN 14.3 13.2 - 17.1 g/dL [facility] HEMATOCRIT 41.3 38.5 - 50.0 % [facility] MCV 95.6 80.0 - 100.0 fL [facility] MCH 33.1(H) 27.0 - 33.0 pg [facility] MCHC 34.6 32.0 - 36.0 g/dL [facility] Comment: For adults, a slight decrease in the calculated MCHC value (in the range of 30 to 32 g/dL) is most likely not clinically significant; however, it should be interpreted with caution in correlation with other red cell parameters and the patient's clinical condition. RDW 12.5 11.0 - 15.0 % [facility] PLATELET COUNT 238 140 - 400 Thousand/u L [facility] MPV 9.6 7.5 - 12.5 fL [facility] ABSOLUTE NEUTROPHILS 2,909 1,500 - 7,800 cells/uL [facility] ABSOLUTE LYMPHOCYTES 1,260 850 - 3,900 cells/uL [facility] ABSOLUTE MONOCYTES 338 200 - 950 cells/uL [facility] ABSOLUTE EOSINOPHILS 141 15 - 500 cells/uL [facility] ABSOLUTE BASOPHILS 52 0 - 200 cells/uL [facility] NEUTROPHILS 61.9 % [facility] LYMPHOCYTES 26.8 % [facility] MONOCYTES 7.2 % [facility] EOSINOPHILS 3.0 % [facility] BASOPHILS 1.1 % [facility] Blood BLOOD SPECIMEN / Unknown 06/25/2025 8:30 AM CDT 06/25/2025 8:31 AM CDT Omi Lopez MD HEMATOLOGY Final Re sult [facility] [address] [place] [address], [facility] [address] [place] [address] * ALT (SGPT) (06/25/2025 8:30 AM CDT) ALT 13 9 - 46 U/L [facility] Blood BLOOD SPECIMEN / Unknown 06/25/2025 8:30 AM CDT 06/25/2025 8:31 AM CDT Omi Lopez MD CHEMISTRY Final Re sult Performing Organization Address [facility]/ZIP Co de Phone Number [facility] [address] [place] [address], [facility] [address] [place] [address] * PSA TOTAL (DIAG OR SCREEN) (06/25/2025 8:30 AM CDT) PSA, TOTAL 0.87 < OR = 4.00 ng/mL [facility] Comment: The total PSA value from this assay system is standardized against the WHO standard. The test result will be approximately 20% lower when compared to the equimolar-standardized total PSA (Amalia Parag). Comparison of serial PSA results should be interpreted with this fact in mind. This test was performed using the Siemens chemiluminescent method. Values obtained from different assay methods cannot be used interchangeably. PSA levels, regardless of value, should not be interpreted as absolute evidence of the presence or absence of disease. Blood BLOOD SPECIMEN / Unknown 06/25/2025 8:30 AM CDT 06/25/2025 8:31 AM CDT Omi Lopez MD CHEMISTRY Final Re sult Performing Organization Address [facility] [[email or web address]] Co de Phone Number [facility] [address] [place] [address], [facility] [address] [place] [address] * (ABNORMAL) BASIC METABOLIC PANEL (06/25/2025 8:30 AM CDT) GLUCOSE 103(H) 65 - 99 mg/dL [facility] Comment: Fasting reference interval For someone without known diabetes, a glucose value between 100 and 125 mg/dL is consistent with prediabetes and should be confirmed with a follow-up test. UREA NITROGEN (BUN) 19 7 - 25 mg/dL [facility] CREATININE 0.96 0.70 - 1.35 mg/dL [facility] EGFR 87 > OR = 60 mL/min/1. 73m2 [facility] BUN/CREATININE RATIO SEE NOTE: 6 - 22 (calc) [facility] Comment: Not Reported: BUN and Creatinine are within reference range. SODIUM 140 135 - 146 mmol/L [facility] POTASSIUM 4.5 3.5 - 5.3 mmol/L [facility] CHLORIDE 106 98 - 110 mmol/L [facility] CARBON DIOXIDE 26 20 - 32 mmol/L [facility] ELECTROLYTE BALANCE 8 7 - 17 mmol/L (calc) [facility] CALCIUM 9.3 8.6 - 10.3 mg/dL [facility] Blood BLOOD SPECIMEN / Unknown 06/25/2025 8:30 AM CDT 06/25/2025 8:31 AM CDT Omi Lopez MD CHEMISTRY Final Re sult [facility] [address] [place] [address], [facility] [address] [place] [address] * COLONOSCOPY (07/24/2020 11:31 AM CDT) 07/24/2020 [...] adequate candidate for conscious sedation. The [id number] was passed through the anus and advanced [...] reponse to care. [facility] flow[facility]ets and nursing notes for moderate sedation details. Total physician intraservice time was 21 minutes. Leandro Mckeon MD 07/24/2020 12:12:50 PM This report has been signed electronically. Note Initiated On: 07/24/2020 11:31 AM Procedure Code(s): --- Professional --- 46041, Colonoscopy, flexible; with removalof tumor(s), polyp(s), or other lesion(s) bysnare technique Diagnosis Code(s): --- Professional --- Z12.11, Encounter for screening formalignant neoplasm of colon K63.5, Polyp of colon K57.30, Diverticulosis of large intestine without perforation or abscess withoutbleeding CPT copyright 2019 [employer]. All rights reserved. The codes documented in this report are preliminary and upon invoice coder reviewmay be revised to meet current compliance requirements. Scope In: 11:50:20 AM Scope Withdrawal Time 0 hours 11 minutes 26 seconds Scope Out: 12:08:58 PM Leandro Mckeon MD PROCEDURE ORD Final Res ult from Last 3 Months or Most Recently Relevant to Health Maintenance Insurance [employer] BLUE MR PB ONLY [facility] M[employer] Care Teams Operator Weapon Locating Radar Relationship Specialty Start Date End Date Votel, Omi cAosta MD [facility] [place] [address] PCP - General Family Practice 07/01/20
[2025-08-09 13:43] VITALS: BP 122/75; PULSE 52; RESP 18; TEMP 36.4; O2SAT 96; BMI 30.5
--- NOTE | 2025-08-09 13:46 | CRLHL7_ITS ---
For Patients: As a result of the Century Cures Act, medical imaging exams and procedure reports are released immediately into your electronic medical record. You may view this report before your referring provider. If you have questions, please contact your health care provider. INDICATION: History of DVT; redness and swelling of the right lower extremity. COMPARISON: None. TECHNIQUE: Duplex ultrasound evaluation venous system right lower extremity; color Doppler duplex assessment. FINDINGS: No evidence of deep venous thrombosis. Deep venous system is compressible with augmentation of flow post compression. Contralateral left common femoral vein is unremarkable. Thrombosed varicosity involving the right anterior meadows and medial calf. Thrombus extends into the hydrologic modeler vein leading to the posterior tibial vein; no DVT identified in the posterior tibial vein. IMPRESSION: Superficial thrombophlebitis involving the thrombosed varicosity right calf No DVT right lower extremity deep venous system. Dictated by Sy Oscar MD @ 08/09/2025 3:47:56 PM (Electronically Signed)
--- NOTE | 2025-08-09 15:54 | ED.GENADULT ---
HPI - General Adult General Chief complaint: Lower Extremity Swelling Stated complaint: Blood clot right leg Time Seen by Provider: 08/09/25 15:02 Source: patient Mode of arrival: ambulatory Limitations: no limitations History of Present Illness HPI narrative: 65 year male presenting today with leg pain and swelling that he has noticed over the last few days. He denies chest pain or shortness of breath. Patient does have history of blood clots in lower extremities after he had a knee replacement. Has not been on anticoagulation for quite some time. Discomfort is located over the anterolateral lower meadows. [place] warm to touch yesterday but now he thinks it has actually gotten better since yesterday. He denies any fevers or chills. Has normal energy, normal appetite and has been otherwise feeling great. Related Data Home Medications ?Medication ?Instructions ?Recorded ?Confirmed levothyroxine 100 mcg tablet 100 mcg PO DAILY 12/04/23 01/15/25 calcium carbonate (Antacid Calcium) 430 mg PO DAILY 12/05/23 01/15/25 multivitamin 1 tab PO DAILY 12/05/23 01/15/25 omega-3 fatty acids 1,000 mg 1,000 mg PO DAILY 12/05/23 01/15/25 capsule vitamin B comp and C no.3 15 mg-10 1 cap PO Q48H PRN 12/05/23 01/15/25 mg-50 mg-5 mg-300 mg capsule (B Complex Plus Vitamin C) meloxicam 15 mg tablet 15 mg PO DAILY 07/09/24 01/15/25 zinc acetate 25 mg (zinc) capsule 25 mg PO DAILY 07/15/24 01/15/25 Previous Rx's ?Medication ?Instructions ?Recorded acetaminophen 500 mg tablet 500 - 1,000 mg (1 - 2 x 500 mg) PO 07/16/24 Q4-6H PRN #100 tabs aspirin 81 mg tablet,delayed 81 mg PO BID 30 days #60 tabs 07/16/24 release Allergies Allergy/AdvReac Type Severity Reaction Status Date / Time No Known Drug Allergies Allergy Verified 01/15/25 08:23 Review of Systems Status of ROS: Reports: 10 or more systems reviewed and unremarkable except as noted in History and below [facility] Medical History Tobacco abuse (06/14/13) ?Z72.0 - Tobacco use (ICD-10) Overweight (06/14/13) ?E66.3 - Overweight (ICD-10) Hypothyroidism, acquired (05/23/20) ?E03.9 - Hypothyroidism, unspecified (ICD-10) Vitamin D deficiency (06/14/13) ?E55.9 - Vitamin D deficiency, unspecified (ICD-10) Varicose veins of right lower extremity (07/21/23) ?I83.91 - Asymptomatic varicose veins of right lower extremity (ICD-10) Mixed hyperlipidemia (06/14/13) ?E78.2 - Mixed hyperlipidemia (ICD-10) Colon polyp (09/06/10) ?K63.5 - Polyp of colon (ICD-10) Bilateral primary osteoarthritis of knee (07/21/23) ?M17.0 - Bilateral primary osteoarthritis of knee (ICD-10) Bilateral primary osteoarthritis of knee ?M17.0 - Bilateral primary osteoarthritis of knee (ICD-10) Vitamin D deficiency (06/14/13) ?E55.9 - Vitamin D deficiency, unspecified (ICD-10) Varicose veins of right lower extremity (07/21/23) ?I83.91 - Asymptomatic varicose veins of right lower extremity (ICD-10) Mixed hyperlipidemia (06/14/13) ?E78.2 - Mixed hyperlipidemia (ICD-10) Colon polyp (09/06/10) ?K63.5 - Polyp of colon (ICD-10) Osteoarthritis ?M19.90 - Unspecified osteoarthritis, unspecified site (ICD-10) Hypothyroidism ?E03.9 - Hypothyroidism, unspecified (ICD-10) Hyperlipidemia ?E78.5 - Hyperlipidemia, unspecified (ICD-10) Surgical History History of bilateral knee arthroplasty (07/16/24) ?Z96.653 - Presence of artificial knee joint, bilateral (ICD-10) History of colon surgery ?Z98.890 - Other specified postprocedural states (ICD-10) Family History Mother Stroke Social History Narrative: He works as a [employer] man. He does not smoke. He drinks 2 alcoholic drinks a day. What is your current living situation?: I presently have a place to live Problems where you live: no known problems Problems where you live details: na In the past 12 months, utilities in danger of being shut off: no In past 12 months, lack of transportation kept you from medical appts, meetings, work, or getting things needed for daily living: no In the past 12 mos, have been you worried that your food would run out before you had money to buy more?: never true In the past 12 mos, the food you bought just didn't last and you didn't have money to buy more?: never true Highest level of school completed/degree received: decline to answer Smoking Status: Former smoker What tobacco products do you use: cigarettes Smoking quit date/years: <= 15 years ago Do you use any of these nicotine containing products: None Second hand tobacco smoke exposure: No How often do you have a drink containing alcohol: monthly or less Alcohol type: beer How many standard drinks containing alcohol do you have on a typical day: 1 or 2 How often do you have six or more drinks on one occasion: Never AUDIT-C Alcohol total score: 1 Non-prescribed substance use: denies use Caffeine: Yes How often does anyone, including family, friends and others, physically hurt you: never How often does anyone, including family, friends and others, insult or talk down to you: never How often does anyone, including family, friends and others, threaten you with harm: never How often does anyone, including family, friends and others, scream or curse at you: never service: No Exam Narrative: Exam Narrative: Well-nourished well-developed patient in no acute distress. Alert and oriented. Answers questions appropriately. Mood and affect are appropriate. Thoughts are goal oriented and rational. No tangential or magical thinking noted. Patient speaks in full sentences without needing to catch his breath. HEENT: Normocephalic atraumatic. Pupils are equally round reactive to light. Extraocular muscles are intact. Conjunctivae are moist without any icterus noted. Moist mucous membranes. Extremities: Bilateral lower extremities are without edema. Normal DP and PT pulses. The right lower extremity has some swelling over the anterolateral meadows he does have a palpable cord there. The skin is pink but not erythematous or hot to touch. The skin is not indurated. Const: Vital Signs, click to edit/add: Vital Signs - 24 hr 08/09/25 13:43 Temperature 97.6 F Pulse Rate [Right Pulse Oximeter] 52 L Respiratory Rate 18 Blood Pressure [Ri ght Upper Arm] 122/75 Pulse Oximetry 96 Oxygen Delivery Me thod Room Air Course Course ED Course: Ultrasound of lower extremity was done showing to superficial thrombophlebitis extending into the diesel engine erector vein leading to the posterior tibial vein and no DVT identified in the posterior tibial vein. There is no mention that the thrombus involves the greater saphenous vein, the anterior accessory saphenous vein or the small saphenous vein. The cause of this you will continue symptomatic care at this time and have a repeat DVT in 7-10 days to make sure that there has been no extension. Vital Signs Vital signs: Initial Vital Signs Temperature 97.6 F 08/09/25 13:43 Temperature Source Temporal Artery Scan 08/09/25 13:43 Pulse Rate 52 L 08/09/25 13:43 Respiratory Rate 18 08/09/25 13:43 Blood Pressure 122/75 08/09/25 13:43 Blood Pressure Mean 90 08/09/25 13:43 Blood Pressure Position Sitting 08/09/25 13:43 Pulse Oximetry 96 08/09/25 13:43 Oxygen Delivery Method Room Air 08/09/25 13:43 Vital Signs Temperature 97.6 F 08/09/25 13:43 Pulse Rate 52 L 08/09/25 13:43 Respiratory Rate 18 08/09/25 13:43 Blood Pressure 122/75 08/09/25 13:43 Pulse Oximetry 96 08/09/25 13:43 Oxygen Delivery Method Room Air 08/09/25 13:43 Temperature 97.6 F 08/09/25 13:43 Pulse Rate 52 L 08/09/25 13:43 Respiratory Rate 18 08/09/25 13:43 Blood Pressure 122/75 08/09/25 13:43 Pulse Oximetry 96 08/09/25 13:43 Oxygen Delivery Method Room Air 08/09/25 13:43 Medical Decision Making MDM Narrative Medical decision making narrative: 65-year-old male with a superficial thrombophlebitis. Will have the patient repeat lower extremity ultrasound in 7-10 days to rule out extension. Discussed symptomatic treatment in the meantime. Imaging Data Venous US: Attestation: I have reviewed the pertinent imaging results. Radiologist's impression: TECHNIQUE: Duplex ultrasound evaluation venous system right lower extremity; color Doppler duplex assessment. FINDINGS: No evidence of deep venous thrombosis. Deep venous system is compressible with augmentation of flow post compression. Contralateral left common femoral vein is unremarkable. Thrombosed varicosity involving the right anterior meadows and medial calf. Thrombus extends into the diesel engine erector vein leading to the posterior tibial vein; no DVT identified in the posterior tibial vein. IMPRESSION: Superficial thrombophlebitis involving the thrombosed varicosity right calf No DVT right lower extremity deep venous system. Discharge Plan Discharge Clinical Impression: Superficial thrombophlebitis Patient Disposition: Home, Self-Care Condition: Stable Additional Instructions: Okay to use ibuprofen as needed for discomfort. Elevate legs as much as possible. Activity as tolerated. Can use heat on the sore areas, do not apply heat directly to the skin and do not use heat for more than 20 minutes at a time. You should follow-up with your primary care provider this Monday. You will need to have a repeat ultrasound done in 7-10 days to make sure that this blood clot has not progressed into a deeper vein. If you are having trouble scheduling this with your primary care provider, you should return to the emergency department. Also consider returning to the ER if you develop worsening pain or shortness of breath. Prescriptions: No Action levothyroxine 100 mcg tablet 100 mcg PO DAILY B Complex Plus Vitamin C [id number] mg capsule 1 cap PO Q48H PRN Rx Instructions: give with food (meal/snack) Antacid Calcium 215 mg calcium (500 mg) tablet,chewable 430 mg PO DAILY multivitamin Tablet 1 tab PO DAILY omega-3 fatty acids 1,000 mg capsule 1,000 mg PO DAILY zinc acetate 25 mg (zinc) capsule 25 mg PO DAILY acetaminophen 500 mg tablet 500 - 1,000 mg PO Q4-6H MDD 4,000 mg per 24 hours PRNQty: 100 0RF aspirin 81 mg tablet,delayed release (DR/EC) 81 mg PO BID 30 Days Qty: 60 0RF meloxicam 15 mg tablet 15 mg PO DAILY Follow Up/Referrals: Omi Lopez MD [Primary Care Provider, Family Practice] Stand Alone Forms: [employer] Info Instructions
[2025-08-09 16:13] VITALS: BP 115/78; PULSE 50; RESP 18; TEMP 37; O2SAT 96
== END 2025-08-09 16:20 | disposition home or self-care (01) ==
PROVIDERS: Emergency Provider Family Medicine; PCP Family Medicine
DX: I80.01 Phlebitis and thrombophlebitis of superficial vessels of right lower extremity (principal)
CPT/HCPCS: 93971; 99283; 99284